=== PATIENT | male | born 1950 | race Caucasian/White ===

== ENCOUNTER 2016-09-14 09:52 | Day surgery (SDC) | payer MEDICARE ==
[~2016-09-14 09:52] MED LIST: Dextrose 5%-Lactated Ringers 1,000 ML IV SCH
[2016-09-14] MEDS ORDERED: Propofol 200 MG/20 ML SDV ONE (12:05)
[2016-09-14] MEDS ORDERED: fentaNYL 100 MCG/2 ML SDV ONE (12:05)
[2016-09-14 13:59] VITALS: BP 127/80
--- NOTE | 2016-09-21 08:46 | OR ---
DATE OF PROCEDURE: 09/14/2016 PREOPERATIVE DIAGNOSES: Highly symptomatic active Crohn's disease, rule out Crohn's colitis. POSTOPERATIVE DIAGNOSES: 1. No active Crohn's disease noted on colonoscopic examination. 2. Single small polyp in the descending colon (50 cm). OPERATIVE PROCEDURE: Flexible colonoscopy with polypectomy by Snare technique ([id number]). ANESTHESIA: IV sedation. INDICATION FOR PROCEDURE: This is a 66-year-old male with longstanding history of Crohn's disease. He is presently highly symptomatic in terms of multitude of bowel movements a day, and discomfort in the right lower quadrant. A small bowel follow-through x-ray was obtained last week, which showed a roughly a 10-inch segment of the distalmost small bowel being actively involved in Crohn's disease. To evaluate the extent of the colonic disease, the patient will undergo colonoscopy with biopsies and/or polypectomy at this time. Potential risks including bleeding and perforation were discussed and the patient wishes to proceed. DETAILS OF PROCEDURE: The patient was taken to the operating room and placed in a left lateral decubitus position. IV sedation was administered, after which the initial digital rectal exam was performed and was unremarkable. Colonoscope was then passed into the rectum with retroflexion revealing uncomplicated hemorrhoidal columns. The scope was then easily passed to the level of the previous colorectal anastomosis. The patient appeared to have had a very simple cecectomy previously with the ileocolic anastomosis being more or less at the beginning of the ascending colon. The patient was noted to have a small polyp within the descending colon at around 50 cm from the dentate line. Otherwise, no abnormalities were noted. The anastomosis to the small bowel and the immediate area did not appear to have any washout type colitis. The scope was then withdrawn and the above findings reconfirmed. The prep was fairly good. The small bowel was encircled at the base with a snare and excised. This came through as a fragmented specimen. Adequate hemostasis was confirmed. The scope was then withdrawn through the remainder of the colon and rectum with no additional abnormalities being noted. The plan at this point will be to proceed with exploratory laparotomy with resection of the distal small bowel portion of the colon on 09/29/2016. Elkin Arias MD /[id number]
== END 2016-09-14 14:15 | disposition home or self-care (01) ==
LOC: JP.SDS 09:52
PROVIDERS: ATTEND Surgery
DX: K63.5 Polyp of colon (principal); J44.9 Chronic obstructive pulmonary disease, unspecified; Z88.2 Allergy status to sulfonamides; Z88.8 Allergy status to other drugs, medicaments and biological substances; Z91.013 Allergy to seafood
CPT/HCPCS: 45385; 88305; J2704; J3010; J7042

== ENCOUNTER 2016-09-29 09:11 | Inpatient (IN) | payer MEDICARE ==
[~2016-09-29 09:11] MED LIST changes: -Dextrose 5%-Lactated Ringers 1,000 ML IV SCH; +Meropenem 500 MG SDV ONE
[2016-09-29] MEDS ORDERED: Naloxone 0.4 MG/ML SDV IVPUSH PRN (09:57)
[2016-09-29] MEDS: Morphine PF 150 MG/30 ML PCA Syringe IV PRN (10:09)
[2016-09-29] MEDS ORDERED: fentaNYL 25 MCG/HR Transdermal Patch TRDERM ONE (10:15)
[2016-09-29] MEDS ORDERED: Dextrose 5%-Lactated Ringers 1,000 ML IV SCH (10:15)
[2016-09-29] MEDS ORDERED: methylPREDNISolone Sodium Succinate 40 MG/1 ML SDV IVPUSH ONE (10:30)
[2016-09-29] MEDS: fentaNYL 25 MCG/HR Transdermal Patch TRDERM SCH (10:47)
[2016-09-29] MEDS ORDERED: Albuterol/Ipratropium 3.0-0.5 MG/3 ML Neb Soln NEB ONE (11:30)
[2016-09-29] MEDS ORDERED: fentaNYL 250 MCG/5 ML SDV ONE (13:11)
[2016-09-29] MEDS ORDERED: Midazolam 1 MG/ML 2 ML SDV ONE (13:11)
[2016-09-29] MEDS ORDERED: Ondansetron 4 MG/2 ML SDV ONE (13:15)
[2016-09-29] MEDS ORDERED: Dexamethasone 4 MG/ML SDV ONE (13:15)
[2016-09-29] MEDS ORDERED: Propofol 200 MG/20 ML SDV ONE (13:15)
[2016-09-29] MEDS ORDERED: Rocuronium 50 MG/5 ML Vial ONE ×2 (13:25→15:53)
[2016-09-29] MEDS ORDERED: Neostigmine Methylsulfate 1 MG/ML 5 ML Syringe ONE (13:25)
[2016-09-29] MEDS ORDERED: Ketamine 500 MG/5 ML MDV IV ONE (14:00)
[2016-09-29] MEDS: cefOXitin 2 GM in Sodium Chloride 0.9% 50 ML IV ONE (14:20)
[2016-09-29] MEDS ORDERED: Lactated Ringers 1,000 ML ONE (15:40)
[2016-09-29] MEDS: Nicotine 14 MG/24 Hr Patch TRDERM SCH (17:05)
[2016-09-29] MEDS ORDERED: Albuterol/Ipratropium 3.0-0.5 MG/3 ML Neb Soln INH PRN (17:51)
[2016-09-29] MEDS ORDERED: Diazepam 5 MG Tab PO PRN (17:52)
[2016-09-29] MEDS ORDERED: Phenazopyridine 95 MG Tab PO PRN (17:56)
[2016-09-29] MEDS: Acetaminophen 1,000 MG in Premix Bag 1 BAG IV SCH (18:55)
[2016-09-29] MEDS: MVI, Adult with Vitamin K 10 ML, Chromium/Copper/Mang/Selen/Zn 1 ML in Dextrose 5%-Lact... IV SCH ×3 (18:58)
[2016-09-29] MEDS: VERIFY FENT PATCH TOP SCH ×2 (19:28→21:14)
[2016-09-29] MEDS ORDERED: methylPREDNISolone Sodium Succinate 40 MG/1 ML SDV IV ONE (20:00)
[2016-09-29] MEDS: cefOXitin 2 GM in Sodium Chloride 0.9% 50 ML IV SCH (21:11)
[2016-09-29] MEDS: Pantoprazole 40 MG Vial IV SCH (21:12)
[2016-09-29] MEDS ORDERED: Losartan 50 MG Tab PO ONE (21:31)
[2016-09-29] MEDS ORDERED: Labetalol 20 MG/4 ML Syringe IVPUSH PRN (21:31)
[2016-09-29] MEDS: Albuterol/Ipratropium 3.0-0.5 MG/3 ML Neb Soln INH SCH (21:49)
[2016-09-30] MEDS: Acetaminophen 1,000 MG in Premix Bag 1 BAG IV SCH ×4 (00:28→18:28)
[2016-09-30] MEDS: Dextrose 5%-Lactated Ringers 1,000 ML IV SCH ×3 (02:45→21:59)
[2016-09-30] MEDS: cefOXitin 2 GM in Sodium Chloride 0.9% 50 ML IV SCH ×3 (02:45→14:12)
[2016-09-30] MEDS ORDERED: methylPREDNISolone Sodium Succinate 40 MG/1 ML SDV IV ONE (06:00)
[2016-09-30] MEDS: Levothyroxine 100 MCG Tab PO SCH (08:09)
[2016-09-30] MEDS: Nicotine 14 MG/24 Hr Patch TRDERM SCH (08:09)
[2016-09-30] MEDS ORDERED: LEVOTHYROXINE SODIUM 100 MCG PO SCH (09:00)
[2016-09-30] MEDS ORDERED: Losartan 50 MG Tab PO SCH ×2 (09:00)
[2016-09-30] MEDS ORDERED: [UNRECOGNIZED DRUG - REMARK] TOP SCH (09:00)
[2016-09-30] MEDS: VERIFY FENT PATCH TOP SCH ×2 (09:37→20:08)
[2016-09-30] MEDS ORDERED: Acetaminophen/Caffeine 500-65 MG Tab PO SCH (10:00)
--- NOTE | 2016-09-30 11:54 | PCM.CONS ---
H&P History of Present Illness - General Date of Service: 09/30/16 Admit Problem/Dx: Admission Diagnosis/Problem Admission Diagnosis/Problem Exploratory laparotomy Source of Information: Patient, Family, Provider, RN notes reviewed History Limitations: Reports: No limitations - History of Present Illness Initial Comments - Free Text/Narative: This patient is a 66-year-old gentleman been asked to see by Dr. Arias concerning a suppressed TSH. He was admitted and underwent partial small bowel resection yesterday by Dr. Arias because of active Crohn's disease causing significant symptoms. He is been stable and done well during the initial postoperative period. Plan is for delayed primary closure tomorrow. He does have a known history of hypothyroidism and is on thyroid replacement medication. TSH obtained prior to surgery was suppressed suggesting possible iatrogenic hyperthyroidism. TSH was repeated this morning and remains suppressed, free T4 level was within normal range, and free T3 level was mildly low. He denies significant symptoms of hyper or hypothyroidism. Right Abdomen Pain Score (Numeric/FACES): 5 Abdomen Pain Score (Numeric/FACES): 8 - Related Data Allergies/Adverse Reactions: Allergies Allergy/AdvReac Type Severity Reaction Status Date / Time Sulfa (Sulfonamide Allergy Unknown unknown Verified 09/14/16 10:11 Antibiotics) adalimumab [From Humira] Allergy Dizziness Verified 09/29/16 10:11 hydromorphone [From Dilaudid] Allergy Itching Verified 09/29/16 10:11 infliximab [From Remicade] Allergy Hives Verified 09/29/16 10:11 shellfish derived Allergy Vomiting Verified 09/14/16 10:11 Home Medications: Home Meds Cholecalciferol (Vitamin D3) [Vitamin D] 2,000 unit PO DAILY 07/24/13 [History] Diazepam [Valium] 15 mg PO BEDTIME 07/24/13 [History] Methscopolamine [place] [Pamine] 2.5 mg PO ACBREAKFAST 07/24/13 [History] Minocycline HCl 50 mg PO DAILY 07/24/13 [History] Phenazopyridine [Pyridium] 200 mg PO TID PRN 07/24/13 [History] Levothyroxine Sodium [Tirosint] 100 mcg PO DAILY 02/18/14 [History] Acetaminophen/Caffeine [Excedrin Tension Headache] 1 tab PO Q6HR 10/01/15 [ History] Doxylamine Succinate [Unisom] 50 mg PO BEDTIME 10/01/15 [History] Pantoprazole [Protonix] 40 mg PO ACBREAKFAST 10/01/15 [History] hydrOXYzine HCl [Atarax] 50 mg PO BEDTIME 10/01/15 [History] Albuterol/Ipratropium [Combivent Respimat] 1 puff IH Q4H PRN 09/10/16 [History] Calcium Citrate 200 mg PO BID 09/10/16 [History] Cyanocobalamin (Vitamin B-12) [Vitamin B-12] 1,000 mcg IM Q30D 09/10/16 [History ] Hydrocodone/Acetaminophen [Hydrocodon-Acetaminophn 10-300] 1.5 tab PO BID [History] Potassium Chloride 40 meq PO TID 09/10/16 [History] predniSONE [Deltasone] 5 mg PO DAILY 09/10/16 [History] Losartan [Cozaar] 12.5 mg PO DAILY 09/29/16 [History] Past Medical History HEENT History: Reports: Allergic rhinitis, Cataract, Impaired vision, Sinusitis Cardiovascular History: Reports: Hypertension, Other (see below) Other Cardiovascular History: Atypical Chest Pain Respiratory History: Reports: COPD, Pneumothorax, Other (see below) Other Respiratory History: pleurisy Gastrointestinal History: Reports: Bowel obstruction, Diverticulosis, GERD, Other (see below) Other Gastrointestinal History: Chrons Genitourinary History: Reports: Renal calculus, Other (see below) Other Genitourinary History: 12 kidney stones per year. Musculoskeletal History: Reports: Back pain, chronic, Osteoarthritis Neurological History: Reports: Headaches, chronic Psychiatric History: Reports: Anxiety, Depression, Panic attack Endocrine/Metabolic History: Reports: Hypothyroidism, Osteopenia Hematologic History: Reports: B12 deficiency, Iron deficiency Immunologic History: Reports: None Dermatologic History: Reports: Eczema, Psoriasis - Infectious Disease History Infectious Disease History: Reports: Chicken pox, Measles, Mumps, Pertussis ( whooping cough) - Past Surgical History Head Surgeries/Procedures: Reports: None HEENT Surgical History: Reports: Cataract surgery, Eye surgery, Oral surgery, Other (see below) Other HEENT Surgeries/Procedures: dental implants Cardiovascular Surgical History: Reports: None Respiratory Surgical History: Reports: None GI Surgical History: Reports: Appendectomy, Colon, Colonoscopy, Hernia repair/ other, Polypectomy Male Surgical History: Reports: Kidney stone extraction, Lithotripsy ([facility]) Endocrine Surgical History: Reports: None Neurological Surgical History: Reports: Scoliosis Musculoskeletal Surgical History: Reports: None Dermatological Surgical History: Reports: None Social & Family History - Family History Family Medical History: Noncontributory - Tobacco Use Smoking Status *Q: Current Every Day Smoker Years of Tobacco use: 50 Packs/Tins Daily: 0.5 Used Tobacco, but Quit: No Month Tobacco Last Used: feb Second Hand Smoke Exposure: No - Caffeine Use Caffeine Use: Reports: Coffee Other Caffeine Use: 2 cups - Alcohol Use Days Per Week of Alcohol Use: 0 - Recreational Drug Use Recreational Drug Use: No H&P Review of Systems - Review of Systems: Review Of Systems: See Below General: Reports: weakness. Denies: fever, chills, diaphoresis Pulmonary: Reports: No Symptoms Cardiovascular: Reports: no symptoms Skin: Reports: no symptoms Exam - Exam Exam: See Below - Vital Signs Vital Signs: Last Vital Signs Temp 98.1 F 09/30/16 11:00 Pulse 80 09/30/16 11:00 Resp 16 09/30/16 11:00 BP 101/65 09/30/16 11:00 Pulse Ox 96 09/30/16 11:00 Weight: 134 lb 6 oz - Exam Quality Assessment: DVT prophylaxis General: sedated Neck: supple, trachea midline, +2 carotid pulse wo bruit. No: lymphadenopathy, thyromegaly Lungs: Clear to auscultation, Normal respiratory effort Cardiovascular: regular rate, regular rhythm, normal S1, normal S2 Abdomen: soft, tenderness, hypoactive bowel sounds. No: organomegaly, peritoneal signs, distention, guarding, rigidity, rebound Back Exam: normal inspection, full range of motion, NT - Patient Data Lab Results last 24 hrs: Laboratory Results - last 24 hr 09/30/16 09/30/16 Range/Units 05:30 05:30 Free T4 0.98 (0.76-1.46) ng/dL Free T3 1.43 L (2.18-3.98) pg/dL TSH, Ultra Sensitive 0.030 L (0.358-3.740) uIU/mL Consult PN Assessment/Plan Procedures: Procedures ASSAY OF LIPASE (11/21/13) ASSAY OF TROPONIN QUANT (10/01/15) CHEST X-RAY 1 VIEW FRONTAL (10/01/15) CLOSTRIDIUM AG IA (11/22/13) COLONOSCOPY W/LESION REMOVAL (09/14/16) COMPLETE CBC W/AUTO DIFF WBC (10/01/15) COMPREHEN METABOLIC PANEL (10/01/15) CT ABD & PELV W/CONTRAST (11/21/13) CT ANGIOGRAPHY CHEST (03/12/14) CT MAXILLOFACIAL W/O DYE (08/31/16) ELECTROCARDIOGRAM REPORT (10/01/15) ELECTROCARDIOGRAM TRACING (10/01/15) EMERGENCY DEPT VISIT (10/01/15) EMERGENCY DEPT VISIT (10/01/15) EMERGENCY DEPT VISIT (02/18/14) EMERGENCY DEPT VISIT (11/21/13) HYDRATE IV INFUSION ADD-ON (03/12/14) ROUTINE VENIPUNCTURE (10/01/15) THER/PROPH/DIAG INJ IV PUSH (10/01/15) TISSUE EXAM BY PATHOLOGIST (09/14/16) TX/PRO/DX INJ NEW DRUG ADDON (10/01/15) URINALYSIS AUTO W/SCOPE (10/01/15) X-RAY UPPER GI&SMALL INTEST (09/11/16) Problem List Initiated/Reviewed/Updated: Yes Plan: ASSESSMENT AND RECOMMENDATIONS STATUS POST PARTIAL SMALL BOWEL RESECTION-patient has had ongoing difficulty with active Crohn's in symptoms and has failed medical management. Surgery performed yesterday by Dr. Arias. -Postop care as per Dr. Arias SUPPRESSED TSH-history of hypothyroidism on thyroid replacement medication. Laboratory tests repeated this morning TSH remains suppressed with a normal T4 and mildly low T3. Does not appear that he has active hyperthyroidism based on these results and certainly has had no symptoms consistent with iatrogenic hyperthyroidism. Likely that the TSH suppression secondary to recent inflammation from the active Crohn's disease -Continue current dose of thyroid replacement medication -Recheck TSH, free T3, and free T4 in 4-6 weeks Requesting Provider: SORIANO Date Consult Requested: 09/30/16 Reason for Consult: Suppressed TSH Patient History Reviewed: Yes
[2016-09-30] MEDS: Albuterol/Ipratropium 3.0-0.5 MG/3 ML Neb Soln INH SCH ×3 (14:33→20:07)
[2016-09-30] MEDS: cefOXitin 2 GM in Sodium Chloride 0.9% 50 ML IV ONE (15:28)
[2016-09-30] MEDS: MVI, Adult with Vitamin K 10 ML, Chromium/Copper/Mang/Selen/Zn 1 ML in Dextrose 5%-Lact... IV SCH ×3 (16:06)
--- NOTE | 2016-09-30 17:25 | PN ---
DATE OF SERVICE: 09/30/2016 SUBJECTIVE: Tien is postop day one. He has been n.p.o. His vital signs have been stable. Temp max of 98.1. His on MALIK put out 110 mL of a light red drainage output, Miller catheter was 715. He had some difficulty with pain control, was started on IV Tylenol and this did not help with the pain quite a bit. REVIEW OF SYSTEMS: Remainder of review of systems negative for any pertinent positives and negatives. OBJECTIVE: GENERAL: Tien Sol is a 66-year-old male. He reports he is comfortable with right now pain is a 4/10. VITAL SIGNS: Temperature is 99.3, pulse rate is 78, respirations are 16, blood pressure 99/62, and pulse ox is 96%. HEENT: Negative. NECK: Supple. HEART: Regular rate and rhythm. LUNGS: Clear. ABDOMEN: Dressings dry and intact. Abdominal binder is on. EXTREMITIES: Without peripheral edema. SCDs are on. ASSESSMENT: Exploratory laparotomy with distal small four bowel resection. PLAN: Discontinue Miller catheter; n.p.o. with ice chips and medications only. Schedule and have consent signed for delayed primary closure on 10/01/2016, IV sedation, Elkin Arias MD. Decrease IV to D5 LR 100 mL per hour. MEDICATIONS: 1. Home medications were started include Excedrin extra-strength one to two tabs daily p.r.n. severe headache, Valium 15 mg p.o. at bedtime, Lorazepam 0.5 mg IV push every 4 hours p.r.n., good pulmonary toilet encouraged. 2. We will evaluate p.r.n. or in a.m. Linda Leo PA-C /[id number]
[2016-09-30] MEDS: LORazepam 2 MG/ML MDV IVPUSH PRN (19:05)
[2016-09-30] MEDS: hydrOXYzine HCl 25 MG Tab PO SCH (20:06)
[2016-09-30] MEDS: Pantoprazole 40 MG Vial IV SCH (20:06)
[2016-09-30] MEDS: Losartan 50 MG Tab PO SCH (20:07)
[2016-09-30] MEDS: Diazepam 5 MG Tab PO SCH (20:16)
[2016-09-30] MEDS ORDERED: Diazepam 5 MG Tab PO SCH (21:00)
[2016-09-30] MEDS ORDERED: DOXYLAMINE SUCCINATE 50 MG PO SCH (21:00)
[2016-10-01] MEDS: LORazepam 2 MG/ML MDV IVPUSH PRN (03:02)
[2016-10-01] MEDS ORDERED: Bupivacaine 0.5% 50 ML MDV ONE (06:45)
[2016-10-01] MEDS ORDERED: Lidocaine 1% with EPINEPHrine 1:100,000 50 ML MDV ONE (06:45)
[2016-10-01] MEDS ORDERED: Meropenem 500 MG SDV ONE (06:45)
[2016-10-01] MEDS ORDERED: fentaNYL 100 MCG/2 ML SDV ONE (06:45)
[2016-10-01] MEDS ORDERED: Propofol 200 MG/20 ML SDV ONE (06:45)
[2016-10-01] MEDS ORDERED: Lactated Ringers 1,000 ML ONE (07:22)
[2016-10-01] MEDS ORDERED: Linezolid 200 MG/100 ML Bag IRR ONE (07:30)
--- NOTE | 2016-10-01 07:43 | PN ---
DATE OF SERVICE: 10/01/2016 SUBJECTIVE: Tien is n.p.o., going down for a delayed primary closure today with IV sedation. He did sleep better last night, but he states he woke up very easily. He does doze off in between. The pain is better controlled. He has no other concerns or questions. His Miller was taken out yesterday. He is voiding. MALIK drain put out 40 mL of a light pink serosanguineous drainage. OBJECTIVE: GENERAL: Tien Sol is a 66-year-old male. He dozes off easily when conversing with him. VITAL SIGNS: TPR 98.8, 80, 18, blood pressure 140/76. HEENT: Negative. NECK: Supple. HEART: Regular rate and rhythm. LUNGS: Clear. ABDOMEN: Dressing dry and intact. MALIK drain as above. EXTREMITIES: SCDs are on. ASSESSMENT: Exploratory laparotomy with distal small bowel resection. PLAN: Orders to be written following delayed primary closure. Linda Leo PA-C /[id number]
[2016-10-01] MEDS: Albuterol/Ipratropium 3.0-0.5 MG/3 ML Neb Soln INH SCH ×4 (10:00→22:04)
[2016-10-01] MEDS: Acetaminophen/Aspirin/Caffeine 250-250-65 MG Tab PO PRN ×3 (10:19→20:14)
[2016-10-01] MEDS: Levothyroxine 100 MCG Tab PO SCH (10:20)
[2016-10-01] MEDS: VERIFY FENT PATCH TOP SCH ×2 (10:21→22:08)
[2016-10-01] MEDS: Nicotine 14 MG/24 Hr Patch TRDERM SCH (10:21)
[2016-10-01] MEDS: Metoclopramide 10 MG/2 ML SDV IV SCH ×3 (10:29→22:05)
[2016-10-01] MEDS: methylPREDNISolone Sodium Succinate 40 MG/1 ML SDV IV SCH (10:34)
[2016-10-01] MEDS: Dextrose 5%-Lactated Ringers 1,000 ML IV SCH (14:18)
[2016-10-01] MEDS ORDERED: Non-Formulary Medication 1 Each PO PRN (14:31)
[2016-10-01] MEDS ORDERED: DOXYLAMINE PO PRN (14:39)
[2016-10-01] MEDS: MVI, Adult with Vitamin K 10 ML, Chromium/Copper/Mang/Selen/Zn 1 ML in Dextrose 5%-Lact... IV SCH ×3 (17:29)
[2016-10-01] MEDS: Pantoprazole 40 MG Vial IV SCH (19:43)
[2016-10-01] MEDS: Losartan 50 MG Tab PO SCH (20:10)
[2016-10-01] MEDS: Diazepam 5 MG Tab PO SCH (22:04)
[2016-10-01] MEDS: hydrOXYzine HCl 25 MG Tab PO SCH (22:17)
[2016-10-02] MEDS: diphenhydrAMINE 25 MG Cap PO PRN (01:32)
[2016-10-02] MEDS: Dextrose 5%-Lactated Ringers 1,000 ML IV SCH (04:50)
[2016-10-02] MEDS: Metoclopramide 10 MG/2 ML SDV IV SCH ×4 (04:52→22:34)
[2016-10-02] MEDS: Albuterol/Ipratropium 3.0-0.5 MG/3 ML Neb Soln INH SCH ×4 (07:11→20:46)
[2016-10-02] MEDS: Levothyroxine 100 MCG Tab PO SCH (07:32)
--- NOTE | 2016-10-02 09:03 | PN ---
DATE OF SERVICE: 10/02/2016 SUBJECTIVE: Tien did sleep better last night. His vital signs have been stable. He has been up ambulating. Pain controlled. He has not had any bowel movements yet and is not passing gas. REVIEW OF SYSTEMS: Remainder of review of systems negative for any pertinent positives and negatives. OBJECTIVE: GENERAL: Tien Sol is a 66-year-old male. He is alert and orientated. VITAL SIGNS: TPR is 97.7, 75, 16. Blood pressure 129/78. HEENT: Negative. NECK: Supple. HEART: Regular rate and rhythm. LUNGS: Clear. ABDOMEN: Dressings dry and intact. Abdominal binder is on. EXTREMITIES: Without peripheral edema. ASSESSMENT: 1. Exploratory laparotomy with distal small-bowel resection on 09/29/2016. 2. Delayed primary closure for open abdominal incision on 10/01/2016. PLAN: 1. Dressing off, may shower. Continue same orders. 2. Ice chips, with sips of water. 3. We will evaluate p.r.n. or in a.m. Linda Leo PA-C /[id number]
[2016-10-02] MEDS: Nicotine 14 MG/24 Hr Patch TRDERM SCH (09:04)
[2016-10-02] MEDS: methylPREDNISolone Sodium Succinate 40 MG/1 ML SDV IV SCH (09:05)
[2016-10-02] MEDS: VERIFY FENT PATCH TOP SCH ×2 (09:25→21:03)
[2016-10-02] MEDS: fentaNYL 25 MCG/HR Transdermal Patch TRDERM SCH (10:11)
[2016-10-02] MEDS: Morphine PF 150 MG/30 ML PCA Syringe IV PRN (10:32)
[2016-10-02] MEDS: MVI, Adult with Vitamin K 10 ML, Chromium/Copper/Mang/Selen/Zn 1 ML in Dextrose 5%-Lact... IV SCH ×3 (15:41)
[2016-10-02] MEDS: Acetaminophen/Aspirin/Caffeine 250-250-65 MG Tab PO PRN (17:32)
[2016-10-02] MEDS: hydrOXYzine HCl 25 MG Tab PO SCH (20:46)
[2016-10-02] MEDS: Pantoprazole 40 MG Vial IV SCH (20:46)
[2016-10-02] MEDS: Diazepam 5 MG Tab PO SCH (20:47)
[2016-10-02] MEDS: Losartan 50 MG Tab PO SCH (20:48)
[2016-10-03] MEDS: Dextrose 5%-Lactated Ringers 1,000 ML IV SCH ×2 (01:43→11:02)
[2016-10-03] MEDS: Metoclopramide 10 MG/2 ML SDV IV SCH ×4 (04:25→22:48)
[2016-10-03] MEDS: Albuterol/Ipratropium 3.0-0.5 MG/3 ML Neb Soln INH SCH ×4 (07:42→20:04)
[2016-10-03] MEDS: methylPREDNISolone Sodium Succinate 40 MG/1 ML SDV IV SCH (08:33)
[2016-10-03] MEDS: Levothyroxine 50 MCG Tab PO SCH (08:33)
[2016-10-03] MEDS: Nicotine 14 MG/24 Hr Patch TRDERM SCH (08:33)
[2016-10-03] MEDS: VERIFY FENT PATCH TOP SCH (08:40)
[2016-10-03] MEDS ORDERED: Bisacodyl 10 MG Supp RECTAL PRN (09:08)
[2016-10-03] MEDS ORDERED: Bisacodyl 10 MG Supp RECTAL ONE (09:30)
[2016-10-03] MEDS: METHSCOPOLAMINE BROMIDE PO SCH ×2 (12:45→17:19)
[2016-10-03] MEDS: MVI, Adult with Vitamin K 10 ML, Chromium/Copper/Mang/Selen/Zn 1 ML in Dextrose 5%-Lact... IV SCH ×3 (17:19)
[2016-10-03] MEDS: Acetaminophen/Aspirin/Caffeine 250-250-65 MG Tab PO PRN (17:29)
[2016-10-03] MEDS ORDERED: Bisacodyl 5 MG Tab PO ONE (19:26)
[2016-10-03] MEDS: hydrOXYzine HCl 25 MG Tab PO SCH (20:04)
[2016-10-03] MEDS: Pantoprazole 40 MG Vial IV SCH (20:04)
[2016-10-03] MEDS: Losartan 50 MG Tab PO SCH (20:05)
[2016-10-03] MEDS: Diazepam 5 MG Tab PO SCH (20:11)
[2016-10-04] MEDS: Metoclopramide 10 MG/2 ML SDV IV SCH ×4 (03:47→22:20)
[2016-10-04] MEDS: Albuterol/Ipratropium 3.0-0.5 MG/3 ML Neb Soln INH SCH ×4 (07:37→20:32)
[2016-10-04] MEDS: Dextrose 5%-Lactated Ringers 1,000 ML IV SCH (07:53)
[2016-10-04] MEDS: METHSCOPOLAMINE BROMIDE PO SCH ×3 (07:56→17:19)
[2016-10-04] MEDS: Levothyroxine 50 MCG Tab PO SCH (07:57)
[2016-10-04] MEDS: Nicotine 14 MG/24 Hr Patch TRDERM SCH (10:10)
[2016-10-04] MEDS: methylPREDNISolone Sodium Succinate 40 MG/1 ML SDV IV SCH (10:11)
[2016-10-04] MEDS: predniSONE 5 MG Tab PO SCH (13:06)
[2016-10-04] MEDS: Acetaminophen/HYDROcodone 325-10 MG Tab PO PRN ×2 (15:17→20:32)
[2016-10-04] MEDS: MVI, Adult with Vitamin K 10 ML, Chromium/Copper/Mang/Selen/Zn 1 ML in Dextrose 5%-Lact... IV SCH ×3 (17:17)
[2016-10-04] MEDS: Pantoprazole 40 MG Vial IV SCH (20:30)
[2016-10-04] MEDS: hydrOXYzine HCl 25 MG Tab PO SCH (20:31)
[2016-10-04] MEDS: Losartan 50 MG Tab PO SCH (20:31)
[2016-10-04] MEDS: diphenhydrAMINE 25 MG Cap PO PRN (20:39)
[2016-10-04] MEDS: Diazepam 5 MG Tab PO SCH (20:39)
[2016-10-05] MEDS: Dextrose 5%-Lactated Ringers 1,000 ML IV SCH (00:10)
[2016-10-05] MEDS: Metoclopramide 10 MG/2 ML SDV IV SCH (04:51)
[2016-10-05] MEDS: Acetaminophen/HYDROcodone 325-10 MG Tab PO PRN (04:56)
[2016-10-05] MEDS: Albuterol/Ipratropium 3.0-0.5 MG/3 ML Neb Soln INH SCH (07:18)
[2016-10-05 07:34] VITALS: BP 140/83
[2016-10-05] MEDS: METHSCOPOLAMINE BROMIDE PO SCH (08:45)
[2016-10-05] MEDS: Levothyroxine 50 MCG Tab PO SCH (08:45)
[2016-10-05] MEDS: Nicotine 14 MG/24 Hr Patch TRDERM SCH (08:47)
[2016-10-05] MEDS: predniSONE 5 MG Tab PO SCH (08:47)
--- NOTE | 2016-10-05 13:53 | PN ---
DATE OF SERVICE: 10/04/2016 The patient has been afebrile, stable vital signs. No major problems noted overnight. Did move his bowels, and passing quite a bit in the way of flatus, tolerated full liquid diet. Plan will be to move up to regular diet. He does have some food intolerances but the regular diet will allow him to choose off the tray things that he should be able to take in as well as to avoid. I'll switch over to oral pain medication, oral prednisone. He may be ready for discharge in another day or two. MALIK drains putting out quite a bit in the way of clear serous fluid and we will remove that drain today as well. Elkin Arias MD /[id number]
[2016-10-05] MEDS ORDERED: Pantoprazole 40 MG Tab.CR PO SCH (21:00)
--- NOTE | 2016-10-06 01:53 | DISCH ---
ADMISSION DIAGNOSES: Crohn's disease, atypical chest pain, hypertension, chronic obstructive pulmonary disease, history of smoking, diverticulosis, gastroesophageal reflux disease, renal calculus, chronic back pain, osteoarthritis, chronic headaches, anxiety, depression, panic attacks, hypothyroidism, osteopenia B12 deficiency, iron deficiency, eczema, and psoriasis. DISCHARGE DIAGNOSES: 1. Exploratory laparotomy with small bowel resection, right colectomy, separate small- bowel strictureplasty and placement of interceed mesh for Crohn's disease, distal small bowel, refractory to medical management on 09/29/2016. 2. Delayed primary closure for open incision on 10/01/2016. HISTORY: Tien Sol is a 66-year-old male with persistent abdominal pain associated with Crohn's disease. After preoperative evaluation and discussion of possible risks and possible complications, he wished to proceed with surgical procedure. HOSPITAL COURSE: Tien had his surgery on 09/29/2016. He had no operative complications and he had a delayed primary closure on 10/01/2016. His pain was treated appropriately. His activity was some adequate. His vital signs remained stable. He started passing flatus and was able to start on a diet. He was advanced from a clear liquid diet to a regular diet, changed from the DOCENT COORDINATOR to oral pain medication and he was able to be discharged without any complications on 10/05/2016. PHYSICAL EXAMINATION: GENERAL: Tien Sol is a 66-year-old male. VITAL SIGNS: Height is 5 feet 7 inches, weight is 134 pounds. TPR is 97.8, 71, 18, blood pressure 140/83. HEENT: Negative. NECK: Supple. HEART: Regular rate and rhythm. LUNGS: Clear. ABDOMEN: Incision looks good. [place] in place and his abdominal binder has been on. EXTREMITIES: Without peripheral edema. DISPOSITION: Discharged to home. CONDITION: Stable and improving. FOLLOWUP: Followup appointment with Elkin Arias MD, on 10/14/2016 at 8:30 a.m. Check free T4-T3 and TSH before appointment. HOME MEDICATION: 1. [place] 10/325 mg 1 to 2 every 4 hours p.r.n. pain #50. 2. Reglan 10 mg q.6 hours p.r.n. nausea #30. 3. He is to resume his home medication of Excedrin tension headache one tablet every 6 hours p.r.n. headache. 4. Combivent 1 inhaler, one puff inhaled every 4 hours p.r.n. shortness of breath. 5. Calcium citrate 200 mg oral twice daily. 6. Vitamin D3 2000 international units oral daily. 7. Vitamin B12 1000 mcg IM every 30 days. 8. Diazepam (Valium) 15 mg oral at bedtime. 9. Unisom doxylamine succinate 50 mg oral at bedtime. 10.Levothyroxine (Tirosint) 100 mcg oral daily. 11.Cozaar losartan 12.5 mg oral daily. 12.Methscopolamine Everetts 2.5 mg oral 3 times a day before meals. 13.Minocycline 50 mg oral daily. 14.Protonix 40 mg before breakfast. 15.Pyridium 200 mg oral 3 times a day as needed for kidney stones. 16.Potassium chloride 40 mEq oral 3 times a day. 17.Hydroxyzine 50 mg oral at bedtime. 18.Prednisone 5 mg oral daily. DIET: After discharge drink 8 to 10 glasses of water a day. GI soft and low residue and low-fiber diet. ACTIVITY: No lifting greater than 10 pounds for 6 weeks. Driving: Do not drive on pain medication. Shower bathing, may shower. Notify provider if any fever, increased pain, swelling, redness, nausea, vomiting, wound incision care keep site clean and dry. Wear abdominal binder for 2 weeks and then as tolerated. SPECIAL INSTRUCTION: Use incentive spirometer 10 times every hour while awake for 2 weeks.
--- NOTE | 2016-10-06 07:38 | PN ---
DATE OF SERVICE: 10/03/2016 The patient has been afebrile with stable vital signs and it feels like there's a sense that he might need to move his bowels, but no flatus or bowel movement, no nausea. Given Dulcolax suppositories, to support, and repeat that p.r.n. otherwise activity will continue to work with pulmonary toilet. We will have him get in the shower today. Elkin Arias MD /[id number]
--- NOTE | 2016-10-08 21:13 | OR ---
DATE OF PROCEDURE: 10/01/2016 PREOPERATIVE DIAGNOSIS: Open abdominal incision. POSTOPERATIVE DIAGNOSIS: Open abdominal incision. OPERATIVE PROCEDURE: Delayed primary closure of open abdominal incision. ANESTHESIA: Local plus IV sedation. INDICATION FOR PROCEDURE: This is a 66-year-old status post a recent small and large bowel resection. The patient has Crohn disease and has steroids, and given the minor contamination as well as concurrent steroid use, the patient was felt to be high risk for a wound infection if primary closure was undertaken. Given this, the wound was packed open for a planned delayed primary closure. Potential risks including bleeding and infection were reviewed, and the patient wishes to proceed. DETAILS OF PROCEDURE: The patient was taken to the operating room and placed in a supine position. After IV sedation was administered, the operative dressing was taken down lower midline incision. The incision was irrigated with meropenem-containing saline solution and then anesthetized with 1% lidocaine mixed with Marcaine. The incision was then closed with 2 layers of 3-0 and 4-0 Vicryl stitch deep and hilton for the skin. Dressing was applied. The patient was taken to the recovery room in satisfactory condition. Elkin Arias MD /[id number]
--- NOTE | 2016-10-09 08:48 | OR ---
DATE OF PROCEDURE: 09/29/2016 PREOPERATIVE DIAGNOSIS: Persistent Crohn's disease associated with symptomatic narrowing in distal small bowel, refractory to medical management. POSTOPERATIVE DIAGNOSES: 1. Persistent Crohn's disease associated with symptomatic narrowing in distal small bowel, refractory to medical management. 2. Separate small-bowel stricture, mid ileum. OPERATIVE PROCEDURE: Exploratory laparotomy with. 1. Small bowel resection (15052). 2. Right colectomy (807658). 3. Separate small bowel strictureplasty (54094). 4. Placement of Interceed mesh to displace pelvic and abdominal wall from small bowel to limit recurrent adhesion formation (76911). ANESTHESIA: General. INDICATION FOR PROCEDURE: This is a 66-year-old male with longstanding Crohn's disease. He presently has been afflicted for now years with area of narrowing in the distal small bowel. This was recently identified with a small bowel follow through, apparently involves roughly 15 cm segment just proximal to the previous ileocolic anastomosis on the right side. The plan is to do exploratory laparotomy with resection of those structures. We will most likely proceed with more of a formal right colectomy in this case to get the colonic site of the anastomosis into a relatively nonscarred and well vascularized portion as well as resect the distal small bowel involving the area of stricturing. We will examine the remainder of the small large bowel for additional pathology with the procedures to be done based on operative findings. Potential risks of the procedure including bleeding, infection, leaks from various GI tract closures, possibility of persistent or recurrent symptoms over time as well as possibility of cardiopulmonary, septic, or hemorrhagic complications leading to were discussed, and the patient wishes to proceed. PROCEDURE IN DETAIL: The patient was taken to the operating room. After general endotracheal anesthesia was induced, a Miller catheter was inserted along with a nasogastric tube, and the abdomen prepped and draped. The previous lower midline incision was then reused and carried down through the skin and subcutaneous tissue. This extended down into the lower abdomen below where there appeared previous incision. This allowed entrance into the abdomen into a cleaned area. With the patient's previous mesh repair in the supraumbilical region, the dissection continued up to the fascia level, but it was felt not to be necessarily going higher than for what we needed for exposure. Thus, the previous mesh was not incised or exposed limiting the chances of this becoming infected. At this point, there was a fair bit in the way of adhesions which were taken down. Eventually, the area of the distal small bowel and ileocolic anastomosis was identified. The distal small bowel was then divided at a point where it became relatively normal and a gross appearance, this being around 18 inches proximal to the anastomosis. The patient has had very limited previous small-bowel resections, so at this point, there was still almost normal length of small bowel remaining after the above resection had been completed. The small bowel was divided with a ANA tafoya load and at that point, the transverse colon more or less on the hepatic flexure site divided with a ANA purple load and the dissection then came up to the area of the previous anastomosis. There were tense inflammatory changes in that area. Tedious dissection was undertaken with the pressure at that area being freed up with care taken to avoid injury to the right ureter and duodenum. After these were freed up and those structures were confirmed to be intact and the mesenteric along the distal small bowel, the remaining right colon divided with a ANA vascular mesenteric loads and specimen delivered from the field. GI tract continuity was then accomplished with a [id number] ileocolic anastomosis with 2 internal firings of the ANA tafoya loads and the common opening closed transversely with the purple load. The anastomosis and mesenteric defect were then approximated with some 3-0 Vicryl stitch along with fibrin sealant. In the mid ileum, the patient had one additional area of stricturing present. This was felt best treated by means of stricturoplasty and enterotomy. The point of stricture was then made in the epigastric port and armed with the ANA stapler passed into the bowel loops as they laid up against each other. This was then fired and the common opening closed transversely with the purple load and the fresh load firings being with a tafoya load. The angles of anastomosis were reinforced with 3-0 Vicryl stitch. In this case, there was no mesenteric defect. A Jong-Baca drain was then placed through a stab wound in the right mid abdomen, taken across the area of the right pericolic gutter and from there into the pelvis and it was irrigated with an antibiotic-containing saline solution. The omentum at this point was all adherent up to the previous mesh and given this, an Interceed mesh was placed along the pelvic sidewall, behind the urinary bladder and then up against the abdominal wall to prevent recurrent adhesion formation between the small bowel and below those structures. The midline fascia was then approximated with #2 Vicryl stitch and the skin and subcutaneous tissues were felt to be at high risk for wound infection if primary closure were undertaken. Given this, the wound was packed open with iodoform gauze and for planned delayed primary closure in 48 hours. The patient was taken to the recovery room in satisfactory condition. There were no evident complications. Elkin Arias MD /[id number]
== END 2016-10-05 10:35 | disposition home or self-care (01) | DRG 330 ==
LOC: JP.SDSSCHI 09:11 → JP.SDS 09:11 → EDSTATUS 11:45 → JP.2SS 17:30
PROVIDERS: ADMIT Surgery; ATTEND Surgery
PROC: 0DTF0ZZ Resection of Right Large Intestine, Open Approach (ICD-10-PCS; principal; 2016-09-29)
PROC: 3E0M05Z Introduction of Adhesion Barrier into Peritoneal Cavity, Open Approach (ICD-10-PCS; principal; 2016-09-29)
PROC: 0DB80ZZ Excision of Small Intestine, Open Approach (ICD-10-PCS; principal; 2016-09-29)
PROC: 0WQF0ZZ Repair Abdominal Wall, Open Approach (ICD-10-PCS; 2016-10-01)
DX: K50.912 Crohn's disease, unspecified, with intestinal obstruction (principal); K50.919 Crohn's disease, unspecified, with unspecified complications; Z48.1 Encounter for planned postprocedural wound closure; I10 Essential (primary) hypertension; Z90.49 Acquired absence of other specified parts of digestive tract; F41.9 Anxiety disorder, unspecified; E53.8 Deficiency of other specified B group vitamins; J44.9 Chronic obstructive pulmonary disease, unspecified; K21.9 Gastro-esophageal reflux disease without esophagitis; E03.9 Hypothyroidism, unspecified; E55.9 Vitamin D deficiency, unspecified; M81.0 Age-related osteoporosis without current pathological fracture; Z87.442 Personal history of urinary calculi; M54.9 Dorsalgia, unspecified; G89.29 Other chronic pain; F17.210 Nicotine dependence, cigarettes, uncomplicated; Z79.82 Long term (current) use of aspirin; Z79.52 Long term (current) use of systemic steroids; Z91.013 Allergy to seafood; Z88.2 Allergy status to sulfonamides; Z88.8 Allergy status to other drugs, medicaments and biological substances
CPT/HCPCS: 36415; 84439; 84443; 84481; 88307; 94640; 94640-76; 94762; A9270-GY; C9113; J0131; J0694; J1100; J2020; J2060; J2185; J2250; J2270; J2405; J2704; J2765; J2920; J3010; J7042; J7050; J7120; J7620

== ENCOUNTER 2017-04-26 08:03 | Day surgery (SDC) | payer MEDICARE ==
[2017-04-26] MEDS ORDERED: Midazolam 1 MG/ML 2 ML SDV ONE (09:00)
[2017-04-26] MEDS ORDERED: fentaNYL 100 MCG/2 ML SDV ONE (09:00)
[2017-04-26] MEDS ORDERED: Propofol 200 MG/20 ML SDV ONE (09:00)
[2017-04-26] MEDS ORDERED: Dextrose 5%-Lactated Ringers 1,000 ML IV SCH (09:00)
[2017-04-26 12:02] VITALS: BP 133/76
--- NOTE | 2017-04-29 10:41 | OR ---
DATE OF PROCEDURE: 04/26/2017 PREOPERATIVE DIAGNOSIS: History of Crohn's disease, status post right colectomy. POSTOPERATIVE DIAGNOSES: 1. History of Crohn's disease, status post right colectomy, with no grossly evident recurrent or persistent Crohn's disease involving the colon or distal small bowel. 2. Uncomplicated left colonic diverticulosis. OPERATIVE PROCEDURE: Flexible colonoscopy. ANESTHESIA: IV sedation. INDICATION FOR PROCEDURE: This is a 67-year-old male presenting for a followup colonoscopy. The patient is status post right colectomy for persistent stricture of the distalmost small bowel and has clinically done quite well following the surgical resection. For general followup, he is to undergo a colonoscopy with biopsies or polypectomy as indicated. Potential risks including bleeding and perforation were discussed, and the patient wishes to proceed. DETAILS OF PROCEDURE: The patient was taken to the operating room and placed in a left lateral decubitus position. IV sedation was administered, after which the initial digital rectal exam was performed and was unremarkable. The colonoscope was then passed into the rectum with retroflexion revealing uncomplicated hemorrhoidal columns. The scope was eventually passed to the level of the transverse colon anastomosis and then roughly 8 or 10 cm into the small bowel proximal to the anastomosis. Overall, the only findings of note were that of some left colonic diverticulosis. There were no areas of gross inflammation involving the colon or the visualized portion of the small bowel and, otherwise, no polyps or other signs of neoplasia. The scope was then withdrawn, the above findings were reconfirmed, and the procedure then concluded. The patient was taken to the recovery room in a satisfactory condition. FOLLOWUP: The timing of followup colonoscopy I will leave up to the consulting Gastroenterology group in [place]. The patient will be following up with Mirna Hsieh CNP, in the GI group at [place]. Elkin Arias MD /[id number]
== END 2017-04-26 12:07 | disposition home or self-care (01) ==
LOC: JP.SDS 08:03
PROVIDERS: ATTEND Surgery
DX: K57.30 Diverticulosis of large intestine without perforation or abscess without bleeding (principal); I10 Essential (primary) hypertension; J44.9 Chronic obstructive pulmonary disease, unspecified; K21.9 Gastro-esophageal reflux disease without esophagitis; E03.9 Hypothyroidism, unspecified; F41.9 Anxiety disorder, unspecified; F32.9 Major depressive disorder, single episode, unspecified; Z90.49 Acquired absence of other specified parts of digestive tract; Z88.2 Allergy status to sulfonamides; Z88.8 Allergy status to other drugs, medicaments and biological substances; Z91.013 Allergy to seafood
CPT/HCPCS: 45378; J2704; J3010; J7042; J2250

== ENCOUNTER 2018-10-06 09:44 | Inpatient (IN) | payer MEDICARE ==
[2018-10-06] MEDS ORDERED: Sodium Chloride 0.9% 1,000 ML IV SCH ×3 (10:15→15:15)
[2018-10-06] MEDS ORDERED: Albuterol 0.083% 2.5 MG/3 ML Neb Soln NEB ONE (10:19)
--- NOTE | 2018-10-06 10:25 | EDM.PDOC ---
ED HPI GENERAL MEDICAL PROBLEM - General Chief Complaint: Respiratory Problem Stated Complaint: BALANCE/SOB Time Seen by Provider: 10/06/18 10:21 Source of Information: Reports: Patient History Limitations: Reports: No Limitations - History of Present Illness INITIAL COMMENTS - FREE TEXT/NARRATIVE: pt arrived very weak and off balance. He has been sick for several days at home with a cough and chest congestion. He has been so weak he can bearly sit up and he is very off balance when he gets up to go to the bathroom. He has been drinking fluids but he has not been eating, He always has loose stools. He has had multiple bowel resections because of crohns diseae. He is not vomiting but he has run some very high fevers. He does not have a fever today. Onset: Gradual, Other ( Last 2-3 days. ) Duration: Day(s): Location: Reports: Chest, Other (marked weakness. ) Associated Symptoms: Reports: Cough, Fever/Chills, Loss of Appetite, Other ( loose stools. ) Generalized Pain Score (Numeric/FACES): 4 - Related Data Allergies Allergy/AdvReac Type Severity Reaction Status Date / Time Sulfa (Sulfonamide Allergy Unknown unknown Verified 10/06/18 10:16 Antibiotics) hydromorphone [From Dilaudid] Allergy Itching Verified 10/06/18 10:16 infliximab [From Remicade] Allergy Hives Verified 10/06/18 10:16 adalimumab [From Humira] AdvReac Dizziness Verified 10/06/18 10:16 shellfish derived AdvReac Vomiting Verified 10/06/18 10:16 Home Meds: Home Meds Cholecalciferol (Vitamin D3) [Vitamin D3] 2,000 unit PO DAILY 07/24/13 [History] Methscopolamine [place] [Pamine] 2.5 mg PO BID 07/24/13 [History] Minocycline HCl 50 mg PO DAILY 07/24/13 [History] Phenazopyridine [Pyridium] 200 mg PO TID PRN 07/24/13 [History] diazePAM [Valium] 15 mg PO BEDTIME 07/24/13 [History] Levothyroxine Sodium [Tirosint] 88 mcg PO DAILY 02/18/14 [History] Pantoprazole [ProTONIX] 40 mg PO ACBREAKFAST 10/01/15 [History] Albuterol/Ipratropium [Combivent Respimat] 1 puff IH Q4H PRN 09/10/16 [History] Hydrocodone/Acetaminophen [Hydrocodon-Acetaminophn 10-300] 1 tab PO Q6H [History] Potassium Chloride 40 meq PO DAILY 09/10/16 [History] predniSONE [Deltasone] 5 mg PO DAILY 09/10/16 [History] Losartan [Cozaar] 12.5 mg PO DAILY 09/29/16 [History] Metoclopramide HCl [Reglan] 10 mg PO Q6HR PRN #30 tablet 10/05/16 [Rx] Loperamide [Imodium] 2 mg PO Q6H PRN 10/06/18 [History] Past Medical History HEENT History: Reports: Allergic Rhinitis, Cataract, Impaired Vision, Sinusitis Cardiovascular History: Reports: Hypertension Other Cardiovascular History: Atypical Chest Pain Respiratory History: Reports: COPD, Pneumothorax, Other (See Below) Other Respiratory History: pleurisy Gastrointestinal History: Reports: Bowel Obstruction, Chronic Diarrhea, Diverticulosis, GERD, Hemorrhoids, Other (See Below) Other Gastrointestinal History: Chrons Genitourinary History: Reports: Renal Calculus, Other (See Below) Other Genitourinary History: 12 kidney stones per year. Musculoskeletal History: Reports: Back Pain, Chronic, Osteoarthritis Neurological History: Reports: Headaches, Chronic Psychiatric History: Reports: Anxiety, Depression, Panic Attack Endocrine/Metabolic History: Reports: Hypothyroidism, Osteopenia Hematologic History: Reports: B12 Deficiency, Iron Deficiency Immunologic History: Reports: None Dermatologic History: Reports: Eczema, Psoriasis - Infectious Disease History Infectious Disease History: Reports: Chicken Pox, Measles, Pertussis (Whooping Cough) - Past Surgical History Head Surgeries/Procedures: Reports: None HEENT Surgical History: Reports: Cataract Surgery, Eye Surgery, Oral Surgery, Other (See Below) GI Surgical History: Reports: Appendectomy, Colon, Colonoscopy, Hernia Repair/ Other, Polypectomy, Other (See Below) Other GI Surgeries/Procedures: colon resection Male Surgical History: Reports: Kidney Stone Extraction, Lithotripsy ([facility]) Endocrine Surgical History: Reports: None Dermatological Surgical History: Reports: None Social & Family History - Family History Family Medical History: Noncontributory - Tobacco Use Smoking Status *Q: Current Every Day Smoker Years of Tobacco use: 50 Packs/Tins Daily: 1.5 - Caffeine Use Caffeine Use: Reports: Coffee, Tea Other Caffeine Use: 2 cups - Recreational Drug Use Recreational Drug Use: No ED ROS GENERAL - Review of Systems Review Of Systems: See Below Constitutional: Reports: Fever, Chills, Malaise, Weakness HEENT: Reports: No Symptoms Respiratory: Reports: Shortness of Breath, Cough Cardiovascular: Reports: No Symptoms Endocrine: Reports: No Symptoms GI/Abdominal: Reports: No Symptoms : Reports: No Symptoms Musculoskeletal: Reports: No Symptoms Skin: Reports: No Symptoms ED EXAM, GENERAL - Physical Exam Exam: See Below Free Text/Narrative:: pt arrived with being sob and running a high temp . He is coughing alot. He has had a high fever to start with. Exam Limited By: No Limitations General Appearance: Alert, Anxious, Moderate Distress, Other (pupils are equal and reactive to lite. ) Ears: Normal TMs Nose: Normal Inspection Throat/Mouth: Normal Inspection Head: Atraumatic Neck: Normal Inspection Respiratory/Chest: Decreased Breath Sounds, Other (pt started with low o2 sats. ) Cardiovascular: Regular Rate, Rhythm, Tachycardia GI/Abdominal: Soft, Non-Tender (Male) Exam: Deferred Rectal (Males) Exam: Other (pt has a known diagnosis of crohns. He has had multiple bowel resections. ) Back Exam: Normal Inspection Extremities: Normal Inspection Neurological: Alert, Oriented, Normal Cognition Psychiatric: Normal Affect Course - Vital Signs Last Recorded V/S: Last Vital Signs Temp 36.0 C 10/07/18 08:00 Pulse 60 10/07/18 08:00 Resp 25 H 10/07/18 08:00 BP 137/92 H 10/07/18 08:00 Pulse Ox 97 10/07/18 08:00 - Orders/Labs/Meds Orders: Active Orders 24 hr Category Date Time Status CULTURE BLOOD [BC] Urgent Lab 10/06/18 10:10 Received CULTURE BLOOD [BC] Urgent Lab 10/06/18 10:15 Received CULTURE STREP A CONFIRMATION [RM] Stat Lab 10/06/18 10:29 Results STREP SCRN A RAPID W CULT CONF [RM] Stat Lab 10/06/18 10:29 Results Blood Culture x2 Reflex Set [OM.PC] Urgent Oth 10/06/18 10:25 Ordered EKG 12 Lead [EK] Routine Ther 10/06/18 11:08 Stop Req Medication Orders Acetaminophen (Tylenol) 650 mg PO Q4H PRN PRN Reason: Fever Albuterol (Proventil Neb Soln) 2.5 mg NEB Q4H PRN PRN Reason: Shortness Of Breath/wheezing Alprazolam (Xanax) 0.5 mg PO BEDTIME [facility] Last Admin: 10/06/18 20:57 Dose: 0.5 mg Benzonatate (Tessalon Perles) 100 mg PO TID PRN PRN Reason: Cough Diazepam (Valium.) 15 mg PO BEDTIME PRN PRN Reason: SLEEP Last Admin: 10/06/18 21:00 Dose: 15 mg Diphenhydramine HCl (Benadryl) 25 mg PO BEDTIME [facility] Last Admin: 10/06/18 20:57 Dose: 25 mg Sodium Chloride (Normal Saline) 1,000 mls @ 125 mls/hr IV ASDIRECTED [facility] Last Admin: 10/07/18 08:05 Dose: 125 mls/hr Infusion: 10/07/18 08:05 Dose: 125 mls/hr Admin: 10/07/18 00:07 Dose: 125 mls/hr Infusion: 10/07/18 00:07 Dose: 125 mls/hr Admin: 10/06/18 16:19 Dose: 125 mls/hr Infusion: 10/06/18 16:19 Dose: 125 mls/hr Admin: 10/06/18 13:45 Dose: 125 mls/hr Levofloxacin 250 mg/ (Levofloxacin 500 mg) 750 mg PO Q48H [facility] Levothyroxine Sodium (Synthroid) 88 mcg PO ACBREAKFAST [facility] Last Admin: 10/07/18 08:07 Dose: 88 mcg Loperamide HCl (Imodium) 2 mg PO Q6H PRN PRN Reason: Diarrhea Melatonin (Melatonin) 12 mg PO BEDTIME [facility] Last Admin: 10/06/18 20:57 Dose: 12 mg Metoclopramide HCl (Reglan) 10 mg PO Q6HR PRN PRN Reason: Nausea Nicotine (Habitrol) 14 mg TRDERM DAILY [facility] Last Admin: 10/07/18 08:07 Dose: 14 mg Admin: 10/06/18 13:47 Dose: 14 mg Methscopolamine 2.5 (Mg (Ptom)) 0 mg PO BID [facility] Last Admin: 10/07/18 08:18 Dose: 2.5 mg Ondansetron HCl (Zofran Odt) 4 mg PO Q6H PRN PRN Reason: Nausea able to take PO Ondansetron HCl (Zofran) 4 mg IV Q6H PRN PRN Reason: Nausea/Vomiting Pantoprazole Sodium (Protonix) 40 mg PO ACBREAKFAST [facility] Last Admin: 10/07/18 08:06 Dose: 40 mg Phenazopyridine HCl (Urinary Pain Relief) 190 mg PO TID PRN PRN Reason: PAIN Prednisone (Prednisone) 5 mg PO DAILY [facility] Last Admin: 10/07/18 08:07 Dose: 5 mg Labs: Laboratory Tests 10/06/18 10/06/18 10/06/18 Range/Units 10:08 10:15 10:15 WBC 7.7 (4.5-11.0) K/uL RBC 4.80 (4.30-5.90) M/uL Hgb 16.1 H D (12.0-15.0) g/dL Hct 47.8 (40.0-54.0) % MCV 100 H (80-98) fL MCH 34 H (27-31) pg MCHC 34 (32-36) % Plt Count 131 L (150-400) K/uL Neut % (Auto) 79 H (36-66) % Lymph % (Auto) 12 L (24-44) % [place] % (Auto) 10 H (2-6) % Eos % (Auto) 0 L (2-4) % Baso % (Auto) 0 (0-1) % Sodium 131 L (140-148) mmol/L Potassium 4.2 (3.6-5.2) mmol/L Chloride 99 L (100-108) mmol/L Carbon Dioxide 20 L (21-32) mmol/L Anion Gap 16.2 H (5.0-14.0) mmol/L BUN 19 H D (7-18) mg/dL Creatinine 2.3 H D (0.8-1.3) mg/dL Est Cr Clr Drug Dosing 23.99 mL/min Estimated GFR (MDRD) 29 L (>60) Glucose 125 H (74-106) mg/dL Lactic Acid (0.4-2.0) mmol/L Calcium 8.9 (8.5-10.1) mg/dL Total Bilirubin 0.3 (0.2-1.0) mg/dL AST 35 (15-37) U/L ALT 15 (12-78) U/L Alkaline Phosphatase 61 (46-116) U/L C-Reactive Protein (0.0-0.3) mg/dL Total Protein 6.9 (6.4-8.2) g/dL Albumin 3.0 L (3.4-5.0) g/dL Globulin 3.9 H (2.3-3.5) g/dL Albumin/Globulin Ratio 0.8 L (1.2-2.2) Urine Color [place] Urine Appearance Clear Urine pH 5.0 (4.5-8.0) Ur Specific [place] 1.015 (1.008-1.030) Urine Protein Negative (NEGATIVE) mg/dL Urine Glucose (UA) Normal (NEGATIVE) mg/dL Urine Ketones Negative (NEGATIVE) mg/dL Urine Occult Blood Negative (NEGATIVE) Urine Nitrite Negative (NEGAITVE) Urine Bilirubin Negative (NEGATIVE) Urine Urobilinogen Normal (NORMAL) mg/dL Ur Leukocyte Esterase Negative (NEGATIVE) Urine RBC 0-5 (0-5) Urine WBC Not seen (0-5) Ur Epithelial Cells Few Amorphous Sediment Few Urine Bacteria Not seen Urine Mucus Not seen 10/06/18 10/06/18 Range/Units 10:15 10:15 WBC (4.5-11.0) K/uL RBC (4.30-5.90) M/uL Hgb (12.0-15.0) g/dL Hct (40.0-54.0) % MCV (80-98) fL MCH (27-31) pg MCHC (32-36) % Plt Count (150-400) K/uL Neut % (Auto) (36-66) % Lymph % (Auto) (24-44) % [place] % (Auto) (2-6) % Eos % (Auto) (2-4) % Baso % (Auto) (0-1) % Sodium (140-148) mmol/L Potassium (3.6-5.2) mmol/L Chloride (100-108) mmol/L Carbon Dioxide (21-32) mmol/L Anion Gap (5.0-14.0) mmol/L BUN (7-18) mg/dL Creatinine (0.8-1.3) mg/dL Est Cr Clr Drug Dosing mL/min Estimated GFR (MDRD) (>60) Glucose (74-106) mg/dL Lactic Acid 3.1 H (0.4-2.0) mmol/L Calcium (8.5-10.1) mg/dL Total Bilirubin (0.2-1.0) mg/dL AST (15-37) U/L ALT (12-78) U/L Alkaline Phosphatase (46-116) U/L C-Reactive Protein 12.95 H (0.0-0.3) mg/dL Total Protein (6.4-8.2) g/dL Albumin (3.4-5.0) g/dL Globulin (2.3-3.5) g/dL Albumin/Globulin Ratio (1.2-2.2) Urine Color Urine Appearance Urine pH (4.5-8.0) Ur Specific [place] (1.008-1.030) Urine Protein (NEGATIVE) mg/dL Urine Glucose (UA) (NEGATIVE) mg/dL Urine Ketones (NEGATIVE) mg/dL Urine Occult Blood (NEGATIVE) Urine Nitrite (NEGAITVE) Urine Bilirubin (NEGATIVE) Urine Urobilinogen (NORMAL) mg/dL Ur Leukocyte Esterase (NEGATIVE) Urine RBC (0-5) Urine WBC (0-5) Ur Epithelial Cells Amorphous Sediment Urine Bacteria Urine Mucus Meds: Medications Generic Name Dose Route Start Last Admin Trade Name Freq PRN Reason Stop Dose Admin Acetaminophen 650 mg 10/06/18 12:54 Tylenol PO Q4H PRN Fever Albuterol 2.5 mg 10/06/18 12:54 Proventil Neb Soln NEB Q4H PRN Shortness Of Breath/wheezing Alprazolam 0.5 mg 10/06/18 21:00 10/06/18 20:57 Xanax PO 0.5 mg BEDTIME [facility] Administration Benzonatate 100 mg 10/06/18 12:54 Tessalon Perles PO TID PRN Cough Diazepam 15 mg 10/06/18 13:08 10/06/18 21:00 Valium. PO 15 mg BEDTIME PRN Administration SLEEP Diphenhydramine HCl 25 mg 10/06/18 21:00 10/06/18 20:57 Benadryl PO 25 mg BEDTIME [facility] Administration Sodium Chloride 1,000 mls @ 125 mls/hr 10/06/18 12:54 10/07/18 08:05 Normal Saline IV 125 mls/hr ASDIRECTED [facility] Administration Levofloxacin 250 mg/ 750 mg 10/08/18 12:00 Levofloxacin 500 mg PO Q48H [facility] Levothyroxine Sodium 88 mcg 10/07/18 07:30 10/07/18 08:07 Synthroid PO 88 mcg ACBREAKFAST [facility] Administration Loperamide HCl 2 mg 10/06/18 12:54 Imodium PO Q6H PRN Diarrhea Melatonin 12 mg 10/06/18 21:00 10/06/18 20:57 Melatonin PO 12 mg BEDTIME [facility] Administration Metoclopramide HCl 10 mg 10/06/18 12:54 Reglan PO Q6HR PRN Nausea Nicotine 14 mg 10/06/18 13:15 10/07/18 08:07 Habitrol TRDERM 14 mg DAILY [facility] Administration Methscopolamine 2.5 0 mg 10/07/18 09:00 10/07/18 08:18 Mg (Ptom) PO 2.5 mg BID [facility] Administration Ondansetron HCl 4 mg 10/06/18 12:54 Zofran Odt PO Q6H PRN Nausea able to take PO Ondansetron HCl 4 mg 10/06/18 12:54 Zofran IV Q6H PRN Nausea/Vomiting Pantoprazole Sodium 40 mg 10/07/18 07:30 10/07/18 08:06 Protonix PO 40 mg ACBREAKFAST [facility] Administration Phenazopyridine HCl 190 mg 10/06/18 13:08 Urinary Pain Relief PO TID PRN PAIN Prednisone 5 mg 10/07/18 09:00 10/07/18 08:07 Prednisone PO 5 mg DAILY [facility] Administration Discontinued Medications Generic Name Dose Route Start Last Admin Trade Name Freq PRN Reason Stop Dose Admin Hydrocodone Bitart/Acetaminophen 1 tab 10/06/18 12:04 10/06/18 12:53 [place] 325-10 Mg PO 10/06/18 12:05 Not Given ONETIME ONE Albuterol 2.5 mg 10/06/18 10:19 10/06/18 10:30 Proventil Neb Soln NEB 10/06/18 10:20 2.5 mg ONETIME ONE Administration Hydrocortisone Sodium Succinate 100 mg 10/06/18 17:30 10/06/18 17:17 Solu-Cortef IVPUSH 10/06/18 17:31 100 mg ONETIME ONE Administration Sodium Chloride 1,000 mls @ 999 mls/hr 10/06/18 10:15 10/06/18 10:20 Normal Saline IV 999 mls/hr ASDIRECTED [facility] Administration Sodium Chloride 1,000 mls @ 999 mls/hr 10/06/18 11:00 10/06/18 11:09 Normal Saline IV 999 mls/hr ASDIRECTED [facility] Administration Levofloxacin/Dextrose 750 mg/ 150 mls @ 100 mls/hr 10/06/18 11:02 10/06/18 11 :10 Premix IV 10/06/18 12:31 100 mls/hr ONETIME ONE Administration Sodium Chloride 1,000 mls @ 999 mls/hr 10/06/18 15:15 10/06/18 15:13 Normal Saline IV 10/06/18 16:16 999 mls/hr ASDIRECTED [facility] Administration Oseltamivir Phosphate 30 mg 10/06/18 12:54 10/06/18 13:47 Tamiflu PO 10/06/18 12:55 30 mg ONETIME ONE Administration - Re-Assessments/Exams Free Text/Narrative Re-Assessment/Exam: 10/06/18 10:51 Pt arrived with a low blood pressure. He has been very weak and off balance when he gets up at home. He has been ill for several days at home. He has been coughing and very congested. He did start out with a high temp. pt has a creatnine of 2.4. He has a normal wbc. He has a elevated lactic acid. He has been given levofloxin 750 iv. He had a chest xray which shows a questionable infiltrate present. 10/06/18 11:04 Departure - Departure Time of Disposition: 11:00 Disposition: Admitted As Inpatient 67 Condition: Fair Clinical Impression: Dehydration, Renal insufficiency, Pneumonia - Discharge Information - My Orders Last 24 Hours: My Active Orders 10/06/18 10:10 CULTURE BLOOD [BC] Urgent 10/06/18 10:15 CULTURE BLOOD [BC] Urgent 10/06/18 10:25 Blood Culture x2 Reflex Set [OM.PC] Urgent 10/06/18 10:29 CULTURE STREP A CONFIRMATION [RM] Stat STREP SCRN A RAPID W CULT CONF [RM] Stat 10/06/18 11:08 EKG 12 Lead [EK] Routine - Assessment/Plan Last 24 Hours: My Active Orders 10/06/18 10:10 CULTURE BLOOD [BC] Urgent 10/06/18 10:15 CULTURE BLOOD [BC] Urgent 10/06/18 10:25 Blood Culture x2 Reflex Set [OM.PC] Urgent 10/06/18 10:29 CULTURE STREP A CONFIRMATION [RM] Stat STREP SCRN A RAPID W CULT CONF [RM] Stat 10/06/18 11:08 EKG 12 Lead [EK] Routine
[2018-10-06] MEDS ORDERED: Levofloxacin/Dextrose 5%-Water 750 MG in Premix Bag 1 BAG IV ONE (11:02)
--- NOTE | 2018-10-06 11:32 | CRLCR ---
HISTORY: Cough and congestion. TECHNIQUE: One view of the chest. COMPARISON: CT of the chest 08/16/2018. FINDINGS: Lungs are hyperinflated compatible with COPD with emphysematous change present. There is no focal lung infiltrate. No pneumothorax or pleural effusion. Cardiac size within normal limits. IMPRESSION: 1. COPD/emphysema. 2. No focal lung infiltrate. Dictated by Drake Cruz MD @ 10/06/2018 11:31:35 AM Dictated by: Drake Cruz MD @ 10/06/2018 11:31:38 (Electronically Signed)
[2018-10-06] MEDS ORDERED: Acetaminophen/HYDROcodone 325-10 MG Tab PO ONE (12:04)
--- NOTE | 2018-10-06 12:21 | PCM.HP ---
H&P History of Present Illness - General Date of Service: 10/06/18 Admit Problem/Dx: Admission Diagnosis/Problem Admission Diagnosis/Problem Acute bronchitis Source of Information: Patient, Family, Provider History Limitations: Reports: No Limitations - History of Present Illness Initial Comments - Free Text/Narative: Tien presented to the emergency room today with 2 days of progressive cough, shortness of breath and weakness. He reports a mild cough for several days but it has been worse over the past 2 days. He is now short of breath with even minimal activity. He has been more somnolent than usual and has been aggressively week. He has been losing his balance but has not fallen and injured himself as of yet. Cough has been productive for green sputum. He's had subjective fevers as well as shaking chills but has not measured any temperatures at home. No reports of chest pain. He has a mild sore throat. No rhinorrhea. No change in bowel or bladder habits from baseline. Appetite and energy have been significantly decreased from baseline. His had a upper respiratory tract infection about one week ago but has been recovering. Workup in the emergency room was suggestive of sepsis with bronchitis being the likely inciting infection. Chest x-ray was clear. He has lactic acidosis as well as acute kidney injury. He has received his 30 mL/kg bolus as well as a dose of levofloxacin. He will be admitted to the intensive care unit with persistent hypotension. Generalized Pain Score (Numeric/FACES): 4 - Related Data Allergies/Adverse Reactions: Allergies Allergy/AdvReac Type Severity Reaction Status Date / Time Sulfa (Sulfonamide Allergy Unknown unknown Verified 10/06/18 10:16 Antibiotics) hydromorphone [From Dilaudid] Allergy Itching Verified 10/06/18 10:16 infliximab [From Remicade] Allergy Hives Verified 10/06/18 10:16 adalimumab [From Humira] AdvReac Dizziness Verified 10/06/18 10:16 shellfish derived AdvReac Vomiting Verified 10/06/18 10:16 Home Medications: Home Meds Cholecalciferol (Vitamin D3) [Vitamin D3] 2,000 unit PO DAILY 07/24/13 [History] Methscopolamine [place] [Pamine] 2.5 mg PO BID 07/24/13 [History] Minocycline HCl 50 mg PO DAILY 07/24/13 [History] Phenazopyridine [Pyridium] 200 mg PO TID PRN 07/24/13 [History] diazePAM [Valium] 15 mg PO BEDTIME 07/24/13 [History] Levothyroxine Sodium [Tirosint] 88 mcg PO DAILY 02/18/14 [History] Pantoprazole [ProTONIX] 40 mg PO ACBREAKFAST 10/01/15 [History] Albuterol/Ipratropium [Combivent Respimat] 1 puff IH Q4H PRN 09/10/16 [History] Hydrocodone/Acetaminophen [Hydrocodon-Acetaminophn 10-300] 1 tab PO Q6H [History] Potassium Chloride 40 meq PO DAILY 09/10/16 [History] predniSONE [Deltasone] 5 mg PO DAILY 09/10/16 [History] Losartan [Cozaar] 12.5 mg PO DAILY 09/29/16 [History] Metoclopramide HCl [Reglan] 10 mg PO Q6HR PRN #30 tablet 10/05/16 [Rx] Loperamide [Imodium] 2 mg PO Q6H PRN 10/06/18 [History] Past Medical History HEENT History: Reports: Allergic Rhinitis, Cataract, Impaired Vision, Sinusitis Cardiovascular History: Reports: Hypertension Other Cardiovascular History: Atypical Chest Pain Respiratory History: Reports: COPD, Pneumothorax, Other (See Below) Other Respiratory History: pleurisy Gastrointestinal History: Reports: Bowel Obstruction, Chronic Diarrhea, Diverticulosis, GERD, Hemorrhoids, Other (See Below) Other Gastrointestinal History: Chrons Genitourinary History: Reports: Renal Calculus, Other (See Below) Other Genitourinary History: 12 kidney stones per year. Musculoskeletal History: Reports: Back Pain, Chronic, Osteoarthritis Neurological History: Reports: Headaches, Chronic Psychiatric History: Reports: Anxiety, Depression, Panic Attack Endocrine/Metabolic History: Reports: Hypothyroidism, Osteopenia Hematologic History: Reports: B12 Deficiency, Iron Deficiency Immunologic History: Reports: None Dermatologic History: Reports: Eczema, Psoriasis - Infectious Disease History Infectious Disease History: Reports: Chicken Pox, Measles, Pertussis (Whooping Cough) - Past Surgical History Head Surgeries/Procedures: Reports: None HEENT Surgical History: Reports: Cataract Surgery, Eye Surgery, Oral Surgery, Other (See Below) GI Surgical History: Reports: Appendectomy, Colon, Colonoscopy, Hernia Repair/ Other, Polypectomy, Other (See Below) Other GI Surgeries/Procedures: colon resection Male Surgical History: Reports: Kidney Stone Extraction, Lithotripsy ([facility]) Endocrine Surgical History: Reports: None Dermatological Surgical History: Reports: None Social & Family History - Family History Family Medical History: Noncontributory - Tobacco Use Smoking Status *Q: Current Every Day Smoker Years of Tobacco use: 50 Packs/Tins Daily: 1.5 - Caffeine Use Caffeine Use: Reports: Coffee, Tea Other Caffeine Use: 2 cups - Alcohol Use Alcohol Use History: No - Recreational Drug Use Recreational Drug Use: No H&P Review of Systems - Review of Systems: Review Of Systems: See Below Free Text/Narrative: A complete 12 point review of systems was obtained. Pertinent positives and negatives are noted in the history of present illness. All other systems were reviewed and were negative except as noted. Exam - Exam Exam: See Below - Vital Signs Vital Signs: Last Vital Signs Temp 36.6 C 10/06/18 10:04 Pulse 89 10/06/18 10:04 Resp 18 10/06/18 10:59 BP 82/60 L 10/06/18 10:59 Pulse Ox 95 10/06/18 10:59 Weight: 54.431 kg - Exam Quality Assessment: No: Supplemental Oxygen General: Alert, Oriented, Cooperative, Mild Distress HEENT: Conjunctiva Clear. No: Mucosa Moist & [place] (dry), Scleral Icterus Neck: Supple, Trachea Midline. No: Lymphadenopathy, JVD Lungs: Clear to Auscultation, Normal Respiratory Effort, Rhonchi (mild upper resp rhonchi) Cardiovascular: Regular Rate, Regular Rhythm. No: Systolic Murmur GI/Abdominal Exam: Normal Bowel Sounds, Soft, No Distention, Tender (mild RLQ) Back Exam: Normal Inspection, Full Range of Motion Extremities: No Pedal Edema. No: Increased Warmth Peripheral Pulses: 2+: Dorsalis Pedis (L), Dorsalis Pedis (R) Skin: Warm, Dry Neuro Extensive - Mental Status: Alert, Oriented x3, Nl Response to Commands Neuro Extensive - Motor, Sensory, Reflexes: CN II-XII Intact. No: Dysarthria, Abnormal Motor, Tremor Psychiatric: Alert, Normal Affect - Patient Data Lab Results Last 24 hrs: Laboratory Results - last 24 hr 03/10/06/18 10/06/18 Range/Units 10:15 10:15 10:15 WBC 7.7 (4.5-11.0) K/uL RBC 4.80 (4.30-5.90) M/uL Hgb 16.1 H D (12.0-15.0) g/dL Hct 47.8 (40.0-54.0) % MCV 100 H (80-98) fL MCH 34 H (27-31) pg MCHC 34 (32-36) % Plt Count 131 L (150-400) K/uL Neut % (Auto) 79 H (36-66) % Lymph % (Auto) 12 L (24-44) % Barry % (Auto) 10 H (2-6) % Eos % (Auto) 0 L (2-4) % Baso % (Auto) 0 (0-1) % Sodium 131 L (140-148) mmol/L Potassium 4.2 (3.6-5.2) mmol/L Chloride 99 L (100-108) mmol/L Carbon Dioxide 20 L (21-32) mmol/L Anion Gap 16.2 H (5.0-14.0) mmol/L BUN 19 H D (7-18) mg/dL Creatinine 2.3 H D (0.8-1.3) mg/dL Est Cr Clr Drug Dosing 23.99 mL/min Estimated GFR (MDRD) 29 L (>60) Glucose 125 H (74-106) mg/dL Lactic Acid 3.1 H (0.4-2.0) mmol/L Calcium 8.9 (8.5-10.1) mg/dL Total Bilirubin 0.3 (0.2-1.0) mg/dL AST 35 (15-37) U/L ALT 15 (12-78) U/L Alkaline Phosphatase 61 (46-116) U/L C-Reactive Protein (0.0-0.3) mg/dL Total Protein 6.9 (6.4-8.2) g/dL Albumin 3.0 L (3.4-5.0) g/dL Globulin 3.9 H (2.3-3.5) g/dL Albumin/Globulin Ratio 0.8 L (1.2-2.2) 10/06/18 Range/Units 10:15 WBC (4.5-11.0) K/uL RBC (4.30-5.90) M/uL Hgb (12.0-15.0) g/dL Hct (40.0-54.0) % MCV (80-98) fL MCH (27-31) pg MCHC (32-36) % Plt Count (150-400) K/uL Neut % (Auto) (36-66) % Lymph % (Auto) (24-44) % Barry % (Auto) (2-6) % Eos % (Auto) (2-4) % Baso % (Auto) (0-1) % Sodium (140-148) mmol/L Potassium (3.6-5.2) mmol/L Chloride (100-108) mmol/L Carbon Dioxide (21-32) mmol/L Anion Gap (5.0-14.0) mmol/L BUN (7-18) mg/dL Creatinine (0.8-1.3) mg/dL Est Cr Clr Drug Dosing mL/min Estimated GFR (MDRD) (>60) Glucose (74-106) mg/dL Lactic Acid (0.4-2.0) mmol/L Calcium (8.5-10.1) mg/dL Total Bilirubin (0.2-1.0) mg/dL AST (15-37) U/L ALT (12-78) U/L Alkaline Phosphatase (46-116) U/L C-Reactive Protein 12.95 H (0.0-0.3) mg/dL Total Protein (6.4-8.2) g/dL Albumin (3.4-5.0) g/dL Globulin (2.3-3.5) g/dL Albumin/Globulin Ratio (1.2-2.2) Result Diagrams: 10/06/18 10:15 10/06/18 10:15 Oscar Results Last 24 hrs: Microbiology 10/06/18 10:25 Influenza Type A Antigen Screen - Final Nasal Aspirate, Left NEGATIVE INFLUENZA A VIRUS AG Influenza Type B Antigen Screen - Final NEGATIVE INFLUENZA B VIRUS AG 10/06/18 10:29 Group A Streptococcus Rapid Screen - Final Throat NEGATIVE STREP A SCREEN Imaging Impressions Last 24 hrs: CXR - images personally reviewed - lungs are clear with no mass, effusion or infiltrate. Heart size is normal. EKG INTERPRETATION EKG Date: 10/06/18 Rhythm: NSR Rate (Beats/Min): 75 [place]: Normal P-Wave: Present QRS: Normal ST-T: Normal QT: Normal *Q Meaningful Use (ADM) - VTE Risk Assess *Q Each Risk Factor Represents 1 Point: Sepsis, Serious lung disease including pneumonia Total Score 1 Point Risk Factors: 2 Each Risk Factor Represents 2 Points: Age 60 - 74 Years Total Score 2 Point Risk Factors: 2 Each Risk Factor Represents 3 Points: None Total Score 3 Point Risk Factors: 0 Each Risk Factor Represents 5 Points: None Total Score 5 Point Risk Factors: 0 Venous Thromboembolism Risk Factor Score *Q: 4 - Problem List (1) Acute bronchitis SNOMED Code(s): 72024867 ICD Code: J20.9 - ACUTE BRONCHITIS, UNSPECIFIED Status: Acute Current Visit: Yes Qualifiers: Bronchitis organism: unspecified organism Qualified Code(s): J20.9 - Acute bronchitis, unspecified (2) Sepsis SNOMED Code(s): 57053514 ICD Code: A41.9 - SEPSIS, UNSPECIFIED ORGANISM Status: Acute Current Visit: Yes Qualifiers: Sepsis type: sepsis due to unspecified organism Qualified Code(s): A41.9 - Sepsis, unspecified organism (3) Acute kidney injury SNOMED Code(s): 43725465 ICD Code: N17.9 - ACUTE KIDNEY FAILURE, UNSPECIFIED Status: Acute Current Visit: Yes (4) Crohns disease SNOMED Code(s): 17511853 ICD Code: K50.90 - CROHN'S DISEASE, UNSPECIFIED, WITHOUT COMPLICATIONS Status: Chronic Current Visit: Yes Qualifiers: Gastrointestinal tract location: small intestine Digestive disease complication type: other complication Qualified Code(s): K50.018 - Crohn's disease of small intestine with other complication (5) Tobacco dependence SNOMED Code(s): 06077955 ICD Code: F17.200 - NICOTINE DEPENDENCE, UNSPECIFIED, UNCOMPLICATED Status : Chronic Current Visit: Yes Problem List Initiated/Reviewed/Updated: Yes Orders Last 24hrs: Active Orders 24 hr Category Date Time Status Patient Status Manage Transfer [TRANSFER] Routine ADT 10/06/18 12:04 Ordered EKG Documentation Completion [RC] ASDIRECTED Care 10/06/18 11:08 Active RT Aerosol Therapy [RC] ASDIRECTED Care 10/06/18 10:20 Active CULTURE BLOOD [BC] Urgent Lab 10/06/18 10:10 Received CULTURE BLOOD [BC] Urgent Lab 10/06/18 10:15 Received CULTURE STREP A CONFIRMATION [] Stat Lab 10/06/18 10:29 Results STREP SCRN A RAPID W CULT CONF [RM] Stat Lab 10/06/18 10:29 Results UA W/MICROSCOPIC [URIN] Urgent Lab 10/06/18 10:08 Ordered Levofloxacin/Dextrose 5%-Water [Levaquin in D5W 750 MG/ Med 10/06/18 11:02 Active 150 ML] 750 mg Premix Bag 1 bag IV ONETIME Sodium Chloride 0.9% [Normal Saline] 1,000 ml Med 10/06/18 10:15 Active IV ASDIRECTED Sodium Chloride 0.9% [Normal Saline] 1,000 ml Med 10/06/18 11:00 Active IV ASDIRECTED Blood Culture x2 Reflex Set [OM.PC] Urgent Oth 10/06/18 10:25 Ordered Resuscitation Status Routine Resus Stat 10/06/18 12:09 Ordered EKG 12 Lead [EK] Routine Ther 10/06/18 11:08 Ordered Medication Orders Sodium Chloride (Normal Saline) 1,000 mls @ 999 mls/hr IV ASDIRECTED [facility] Last Admin: 10/06/18 10:20 Dose: 999 mls/hr Sodium Chloride (Normal Saline) 1,000 mls @ 999 mls/hr IV ASDIRECTED [facility] Last Admin: 10/06/18 11:09 Dose: 999 mls/hr Levofloxacin/Dextrose 750 mg/ (Premix) 150 mls @ 100 mls/hr IV ONETIME ONE Stop: 10/06/18 12:31 Last Admin: 10/06/18 11:10 Dose: 100 mls/hr Assessment/Plan Comment:: ASSESSMENT AND PLAN - Acute bronchitis - compensated by sepsis(hypotension, lactic acidosis and acute kidney injury). Story fits very well with influenza but testing was negative. White count is normal and he is not currently febrile. Not currently requiring oxygen. He has received his 30 mL/kg bolus and broad-spectrum antibiotics. -Continue levofloxacin -Continue IV fluids with boluses as indicated by hypotension -Hold antihypertensive medication -Empiric treatment for influenza -Continue levofloxacin for bronchitis management -Repeat lactic acid -Cardiac monitoring Acute kidney injury - Likely secondary to intravascular volume depletion with poor intake and sepsis. -IV fluids as above -Repeat labs in the morning Crohn's disease - Chronic and stable at this time. Maintenance issues - - DVT prophylaxis - mechanical - GI prophylaxis - PPI - Nutrition - regular diet as tolerated - Miller catheter - not indicated CODE STATUS - DO NOT RESUSCITATE with short trial of intubation acceptable Admission justification - This patient will be admitted for inpatient services and is medically appropriate meeting medical necessity for inpatient admission as outlined in my documentation. I reasonably expect the patient will require inpatient services that span a period time over 2 midnights. I reasonably expect this patient to be discharged or transferred within 96 hours after admission to the Critical [facility]. Disposition - I would anticipate discharge home after the hospital stay Primary care physician - Lisa Curtis M.D.
[2018-10-06] MEDS ORDERED: Albuterol 0.083% 2.5 MG/3 ML Neb Soln NEB PRN (12:54)
[2018-10-06] MEDS ORDERED: Benzonatate 100 MG Cap PO PRN (12:54)
[2018-10-06] MEDS ORDERED: Metoclopramide 10 MG Tab PO PRN (12:54)
[2018-10-06] MEDS ORDERED: Oseltamivir 30 MG Cap PO ONE (12:54)
[2018-10-06] MEDS ORDERED: PHENAZOPYRIDINE 200 MG PO PRN (12:54)
[2018-10-06] MEDS ORDERED: Loperamide 2 MG Cap PO PRN (12:54)
[2018-10-06] MEDS ORDERED: Ondansetron 4 MG/2 ML SDV IV PRN (12:54)
[2018-10-06] MEDS ORDERED: Acetaminophen 325 MG Tab PO PRN (12:54)
[2018-10-06] MEDS ORDERED: Ondansetron 4 MG Tab.DIS PO PRN (12:54)
[2018-10-06] MEDS ORDERED: Phenazopyridine 95 MG Tab PO PRN (13:08)
[2018-10-06] MEDS: Sodium Chloride 0.9% 1,000 ML IV SCH ×2 (13:45→16:19)
[2018-10-06] MEDS: Nicotine 14 MG/24 Hr Patch TRDERM SCH (13:47)
[2018-10-06] MEDS ORDERED: Hydrocortisone Sodium Succinate 100 MG/2 ML SDV IVPUSH ONE (17:30)
[2018-10-06] MEDS: ALPRAZolam 0.5 MG Tab PO SCH (20:57)
[2018-10-06] MEDS: Melatonin 3 MG Tab PO SCH (20:57)
[2018-10-06] MEDS: diphenhydrAMINE 25 MG Cap PO SCH (20:57)
[2018-10-06] MEDS: Diazepam 5 MG Tab PO PRN (21:00)
[2018-10-06] MEDS ORDERED: DIAZEPAM 15 MG PO SCH (21:00)
[2018-10-07] MEDS: Sodium Chloride 0.9% 1,000 ML IV SCH ×2 (00:07→08:05)
[2018-10-07] MEDS: Pantoprazole 40 MG Tab.CR PO SCH (08:06)
[2018-10-07] MEDS: Nicotine 14 MG/24 Hr Patch TRDERM SCH (08:07)
[2018-10-07] MEDS: Levothyroxine 88 MCG Tab PO SCH (08:07)
[2018-10-07] MEDS: METHSCOPOLAMINE PO SCH ×2 (08:18→21:43)
[2018-10-07] MEDS ORDERED: LEVOTHYROXINE SODIUM 88 MCG PO SCH (09:00)
[2018-10-07] MEDS ORDERED: predniSONE 5 MG Tab PO SCH (09:00)
--- NOTE | 2018-10-07 09:29 | PCM.PN ---
- General Info Date of Service: 10/07/18 Subjective Update: yesterday evening following admission the patient had persistent hypotension. He received several fluid boluses and eventually a dose of hydrocortisone. Since that time his blood pressures have been better. He has not had any fevers. Cough remains productive for yellowish sputum. No complaints of chest pain. Muscle aches are better today. Kidney function is much better today. Sputum culture is pending but Gram stain saw a few yeast and a few gram- positive cocci. He did have diarrhea this morning but that is his norm. Functional Status: Reports: Pain Controlled, Tolerating Diet - Review of Systems General: Reports: Weakness. Denies: Fever Pulmonary: Reports: Shortness of Breath, Cough Cardiovascular: Denies: Chest Pain - Patient Data Vitals - Most Recent: Last Vital Signs Temp 36.0 C 10/07/18 08:00 Pulse 60 10/07/18 08:00 Resp 25 H 10/07/18 08:00 BP 137/92 H 10/07/18 08:00 Pulse Ox 97 10/07/18 08:00 Weight - Most Recent: 55 kg I&O - Last 24 Hours: Intake & Output 10/06/18 10/07/18 10/07/18 22:59 06:59 14:59 Intake Total 2051 1707 Output Total 375 125 Balance 1676 1707 -125 Lab Results Last 24 Hours: Laboratory Results - last 24 hr 10/06/18 10/06/18 10/06/18 Range/Units 10:08 10:15 10:15 WBC 7.7 (4.5-11.0) K/uL RBC 4.80 (4.30-5.90) M/uL Hgb 16.1 H D (12.0-15.0) g/dL Hct 47.8 (40.0-54.0) % MCV 100 H (80-98) fL MCH 34 H (27-31) pg MCHC 34 (32-36) % Plt Count 131 L (150-400) K/uL Neut % (Auto) 79 H (36-66) % Lymph % (Auto) 12 L (24-44) % [place] % (Auto) 10 H (2-6) % Eos % (Auto) 0 L (2-4) % Baso % (Auto) 0 (0-1) % Sodium 131 L (140-148) mmol/L Potassium 4.2 (3.6-5.2) mmol/L Chloride 99 L (100-108) mmol/L Carbon Dioxide 20 L (21-32) mmol/L Anion Gap 16.2 H (5.0-14.0) mmol/L BUN 19 H D (7-18) mg/dL Creatinine 2.3 H D (0.8-1.3) mg/dL Est Cr Clr Drug Dosing 23.99 mL/min Estimated GFR (MDRD) 29 L (>60) Glucose 125 H (74-106) mg/dL Lactic Acid (0.4-2.0) mmol/L Calcium 8.9 (8.5-10.1) mg/dL Total Bilirubin 0.3 (0.2-1.0) mg/dL AST 35 (15-37) U/L ALT 15 (12-78) U/L Alkaline Phosphatase 61 (46-116) U/L C-Reactive Protein (0.0-0.3) mg/dL Total Protein 6.9 (6.4-8.2) g/dL Albumin 3.0 L (3.4-5.0) g/dL Globulin 3.9 H (2.3-3.5) g/dL Albumin/Globulin Ratio 0.8 L (1.2-2.2) Urine Color [place] Urine Appearance Clear Urine pH 5.0 (4.5-8.0) Ur Specific [place] 1.015 (1.008-1.030) Urine Protein Negative (NEGATIVE) mg/dL Urine Glucose (UA) Normal (NEGATIVE) mg/dL Urine Ketones Negative (NEGATIVE) mg/dL Urine Occult Blood Negative (NEGATIVE) Urine Nitrite Negative (NEGAITVE) Urine Bilirubin Negative (NEGATIVE) Urine Urobilinogen Normal (NORMAL) mg/dL Ur Leukocyte Esterase Negative (NEGATIVE) Urine RBC 0-5 (0-5) Urine WBC Not seen (0-5) Ur Epithelial Cells Few Amorphous Sediment Few Urine Bacteria Not seen Urine Mucus Not seen 10/06/18 10/06/18 10/06/18 Range/Units 10:15 10:15 14:56 WBC (4.5-11.0) K/uL RBC (4.30-5.90) M/uL Hgb (12.0-15.0) g/dL Hct (40.0-54.0) % MCV (80-98) fL MCH (27-31) pg MCHC (32-36) % Plt Count (150-400) K/uL Neut % (Auto) (36-66) % Lymph % (Auto) (24-44) % [place] % (Auto) (2-6) % Eos % (Auto) (2-4) % Baso % (Auto) (0-1) % Sodium (140-148) mmol/L Potassium (3.6-5.2) mmol/L Chloride (100-108) mmol/L Carbon Dioxide (21-32) mmol/L Anion Gap (5.0-14.0) mmol/L BUN (7-18) mg/dL Creatinine (0.8-1.3) mg/dL Est Cr Clr Drug Dosing mL/min Estimated GFR (MDRD) (>60) Glucose (74-106) mg/dL Lactic Acid 3.1 H 2.1 H (0.4-2.0) mmol/L Calcium (8.5-10.1) mg/dL Total Bilirubin (0.2-1.0) mg/dL AST (15-37) U/L ALT (12-78) U/L Alkaline Phosphatase (46-116) U/L C-Reactive Protein 12.95 H (0.0-0.3) mg/dL Total Protein (6.4-8.2) g/dL Albumin (3.4-5.0) g/dL Globulin (2.3-3.5) g/dL Albumin/Globulin Ratio (1.2-2.2) Urine Color Urine Appearance Urine pH (4.5-8.0) Ur Specific [place] (1.008-1.030) Urine Protein (NEGATIVE) mg/dL Urine Glucose (UA) (NEGATIVE) mg/dL Urine Ketones (NEGATIVE) mg/dL Urine Occult Blood (NEGATIVE) Urine Nitrite (NEGAITVE) Urine Bilirubin (NEGATIVE) Urine Urobilinogen (NORMAL) mg/dL Ur Leukocyte Esterase (NEGATIVE) Urine RBC (0-5) Urine WBC (0-5) Ur Epithelial Cells Amorphous Sediment Urine Bacteria Urine Mucus 10/07/18 10/07/18 Range/Units 04:55 04:55 WBC 3.2 L (4.5-11.0) K/uL RBC 3.74 L (4.30-5.90) M/uL Hgb 12.3 D (12.0-15.0) g/dL Hct 38.0 L (40.0-54.0) % MCV 102 H (80-98) fL MCH 33 H (27-31) pg MCHC 32 (32-36) % Plt Count 93 L (150-400) K/uL Neut % (Auto) (36-66) % Lymph % (Auto) (24-44) % [place] % (Auto) (2-6) % Eos % (Auto) (2-4) % Baso % (Auto) (0-1) % Sodium 137 L (140-148) mmol/L Potassium 4.9 (3.6-5.2) mmol/L Chloride 108 (100-108) mmol/L Carbon Dioxide 24 (21-32) mmol/L Anion Gap 9.9 (5.0-14.0) mmol/L BUN 16 (7-18) mg/dL Creatinine 1.4 H (0.8-1.3) mg/dL Est Cr Clr Drug Dosing 39.42 mL/min Estimated GFR (MDRD) 51 L (>60) Glucose 126 H (74-106) mg/dL Lactic Acid (0.4-2.0) mmol/L Calcium 7.3 L D (8.5-10.1) mg/dL Total Bilirubin (0.2-1.0) mg/dL AST (15-37) U/L ALT (12-78) U/L Alkaline Phosphatase (46-116) U/L C-Reactive Protein (0.0-0.3) mg/dL Total Protein (6.4-8.2) g/dL Albumin (3.4-5.0) g/dL Globulin (2.3-3.5) g/dL Albumin/Globulin Ratio (1.2-2.2) Urine Color Urine Appearance Urine pH (4.5-8.0) Ur Specific [place] (1.008-1.030) Urine Protein (NEGATIVE) mg/dL Urine Glucose (UA) (NEGATIVE) mg/dL Urine Ketones (NEGATIVE) mg/dL Urine Occult Blood (NEGATIVE) Urine Nitrite (NEGAITVE) Urine Bilirubin (NEGATIVE) Urine Urobilinogen (NORMAL) mg/dL Ur Leukocyte Esterase (NEGATIVE) Urine RBC (0-5) Urine WBC (0-5) Ur Epithelial Cells Amorphous Sediment Urine Bacteria Urine Mucus Oscar Results Last 24 Hours: Microbiology 10/06/18 10:29 Quick Strep Confirmation Culture - Preliminary Throat NO GROUP A STREP ISOLATED Group A Streptococcus Rapid Screen - Final NEGATIVE STREP A SCREEN 10/06/18 17:23 Gram Stain - Final Sputum - Expectorated 10/06/18 10:25 Influenza Type A Antigen Screen - Final Nasal Aspirate, Left NEGATIVE INFLUENZA A VIRUS AG Influenza Type B Antigen Screen - Final NEGATIVE INFLUENZA B VIRUS AG Med Orders - Current: Current Medications Acetaminophen (Tylenol) 650 mg PO Q4H PRN PRN Reason: Fever Hydrocodone Bitart/Acetaminophen ([place] 325-10 Mg) 1 tab PO Q4H PRN PRN Reason: Pain (moderate 4-6) Albuterol (Proventil Neb Soln) 2.5 mg NEB Q4H PRN PRN Reason: Shortness Of Breath/wheezing Alprazolam (Xanax) 0.5 mg PO BEDTIME [facility] Last Admin: 10/06/18 20:57 Dose: 0.5 mg Benzonatate (Tessalon Perles) 100 mg PO TID PRN PRN Reason: Cough Diazepam (Valium.) 15 mg PO BEDTIME PRN PRN Reason: SLEEP Last Admin: 10/06/18 21:00 Dose: 15 mg Diphenhydramine HCl (Benadryl) 25 mg PO BEDTIME [facility] Last Admin: 10/06/18 20:57 Dose: 25 mg Sodium Chloride (Normal Saline) 1,000 mls @ 125 mls/hr IV ASDIRECTED [facility] Last Admin: 10/07/18 08:05 Dose: 125 mls/hr Levofloxacin 250 mg/ (Levofloxacin 500 mg) 750 mg PO Q48H [facility] Levothyroxine Sodium (Synthroid) 88 mcg PO ACBREAKFAST [facility] Last Admin: 10/07/18 08:07 Dose: 88 mcg Loperamide HCl (Imodium) 2 mg PO Q6H PRN PRN Reason: Diarrhea Melatonin (Melatonin) 12 mg PO BEDTIME [facility] Last Admin: 10/06/18 20:57 Dose: 12 mg Metoclopramide HCl (Reglan) 10 mg PO Q6HR PRN PRN Reason: Nausea Nicotine (Habitrol) 14 mg TRDERM DAILY [facility] Last Admin: 10/07/18 08:07 Dose: 14 mg Methscopolamine 2.5 (Mg (Ptom)) 0 mg PO BID [facility] Last Admin: 10/07/18 08:18 Dose: 2.5 mg Ondansetron HCl (Zofran Odt) 4 mg PO Q6H PRN PRN Reason: Nausea able to take PO Ondansetron HCl (Zofran) 4 mg IV Q6H PRN PRN Reason: Nausea/Vomiting Pantoprazole Sodium (Protonix) 40 mg PO ACBREAKFAST [facility] Last Admin: 10/07/18 08:06 Dose: 40 mg Phenazopyridine HCl (Urinary Pain Relief) 190 mg PO TID PRN PRN Reason: PAIN Discontinued Medications Hydrocodone Bitart/Acetaminophen ([place] 325-10 Mg) 1 tab PO ONETIME ONE Stop: 10/06/18 12:05 Last Admin: 10/06/18 12:53 Dose: Not Given Albuterol (Proventil Neb Soln) 2.5 mg NEB ONETIME ONE Stop: 10/06/18 10:20 Last Admin: 10/06/18 10:30 Dose: 2.5 mg Hydrocortisone Sodium Succinate (Solu-Cortef) 100 mg IVPUSH ONETIME ONE Stop: 10/06/18 17:31 Last Admin: 10/06/18 17:17 Dose: 100 mg Sodium Chloride (Normal Saline) 1,000 mls @ 999 [facility] Admin: 10/06/18 10:20 Dose: 999 mls/hr Sodium Chloride (Normal Saline) 1,000 mls @ 999 mls/hr IV ASDIRECTED [facility] Last Admin: 10/06/18 11:09 Dose: 999 mls/hr Levofloxacin/Dextrose 750 mg/ (Premix) 150 mls @ 100 mls/hr IV ONETIME ONE Stop: 10/06/18 12:31 Last Admin: 10/06/18 11:10 Dose: 100 mls/hr Sodium Chloride (Normal Saline) 1,000 mls @ 999 mls/hr IV ASDIRECTED [facility] Stop: 10/06/18 16:16 Last Admin: 10/06/18 15:13 Dose: 999 mls/hr Oseltamivir Phosphate (Tamiflu) 30 mg PO ONETIME ONE Stop: 10/06/18 12:55 Last Admin: 10/06/18 13:47 Dose: 30 mg Prednisone (Prednisone) 5 mg PO DAILY [facility] Last Admin: 10/07/18 08:07 Dose: 5 mg - Exam Quality Assessment: No: Supplemental Oxygen General: Alert, Oriented, Cooperative, No Acute Distress Lungs: Normal Respiratory Effort, Rhonchi (mod upper resp), Wheezing (mild diffuse exp) Cardiovascular: Regular Rate, Regular Rhythm GI/Abdominal Exam: Normal Bowel Sounds, Soft, No Distention Extremities: No Pedal Edema. No: Increased Warmth Skin: Warm, Dry Psy/Mental Status: Alert, Normal Affect - Problem List & Annotations (1) Acute bronchitis SNOMED Code(s): 26739048 Code(s): J20.9 - ACUTE BRONCHITIS, UNSPECIFIED Status: Acute Current Visit: Yes Qualifiers: Bronchitis organism: unspecified organism Qualified Code(s): J20.9 - Acute bronchitis, unspecified (2) Sepsis SNOMED Code(s): 64414890 Code(s): A41.9 - SEPSIS, UNSPECIFIED ORGANISM Status: Acute Current Visit : Yes Qualifiers: Sepsis type: sepsis due to unspecified organism Qualified Code(s): A41.9 - Sepsis, unspecified organism (3) Acute kidney injury SNOMED Code(s): 46708646 Code(s): N17.9 - ACUTE KIDNEY FAILURE, UNSPECIFIED Status: Acute Current Visit: Yes (4) Crohns disease SNOMED Code(s): 15123363 Code(s): K50.90 - CROHN'S DISEASE, UNSPECIFIED, WITHOUT COMPLICATIONS Status: Chronic Current Visit: Yes Qualifiers: Gastrointestinal tract location: small intestine Digestive disease complication type: other complication Qualified Code(s): K50.018 - Crohn's disease of small intestine with other complication (5) Tobacco dependence SNOMED Code(s): 59372654 Code(s): F17.200 - NICOTINE DEPENDENCE, UNSPECIFIED, UNCOMPLICATED Status: Chronic Current Visit: Yes - Problem List Review Problem List Initiated/Reviewed/Updated: Yes - My Orders Last 24 Hours: My Active Orders 10/06/18 12:09 Resuscitation Status Routine 10/06/18 12:54 Patient Status [ADT] Routine Antiembolic Devices [RC] .Routine Intake and Output [RC] QSHIFT Notify Provider Vital Signs [RC] ASDIRECTED Oxygen Therapy [RC] PRN RT Aerosol Therapy [RC] ASDIRECTED Up With Assistance [RC] ASDIRECTED VTE/DVT Education [RC] Per Unit Routine Vital Signs [RC] Q4H Acetaminophen [Tylenol] 650 mg PO Q4H PRN Albuterol [Proventil Neb Soln] 2.5 mg NEB Q4H PRN Benzonatate [Tessalon Perles] 100 mg PO TID PRN Loperamide [Imodium] 2 mg PO Q6H PRN Metoclopramide [Reglan] 10 mg PO Q6HR PRN Ondansetron [Zofran ODT] 4 mg PO Q6H PRN Ondansetron [Zofran] 4 mg IV Q6H PRN Sodium Chloride 0.9% [Normal Saline] 1,000 ml IV ASDIRECTED Pressure Reduction Mattress [OM.PC] Routine Sequential Compression Device [OM.PC] Per Unit Routine 10/06/18 13:08 Phenazopyridine [Urinary Pain Relief] 190 mg PO TID PRN diazePAM [Valium] 15 mg PO BEDTIME PRN 10/06/18 13:15 Nicotine [Habitrol] 14 mg TRDERM DAILY 10/06/18 17:23 CULTURE RESPIRATORY + SMEAR [RM] Routine 10/06/18 21:00 ALPRAZolam [Xanax] 0.5 mg PO BEDTIME Melatonin 12 mg PO BEDTIME diphenhydrAMINE [Benadryl] 25 mg PO BEDTIME 10/06/18 Dinner Regular Diet [DIET] 10/07/18 07:30 Levothyroxine [Synthroid] 88 mcg PO ACBREAKFAST Pantoprazole [ProTONIX] 40 mg PO ACBREAKFAST 10/07/18 08:56 Acetaminophen/HYDROcodone [[place] 325-10 MG] 1 tab PO Q4H PRN 10/07/18 09:00 Methscopolamine [place] [Pamine] 0 mg PO BID 10/07/18 09:27 Discontinue Telemetry Monitoring [Cardiac Monitoring Discontinue] [RC] Click to Edit Convert IV to Saline Lock [OM.PC] Routine 10/07/18 09:30 Oseltamivir [Tamiflu] 30 mg PO BID 10/08/18 05:00 BASIC METABOLIC PANEL,BMP [CHEM] Timed CBC W/O DIFF,HEMOGRAM [HEME] Timed (1) 10/08/18 09:00 predniSONE 20 mg PO DAILY 10/08/18 09:30 predniSONE 15 mg PO ONETIME ONE 10/08/18 12:00 Levofloxacin [Levaquin] 750 mg PO Q48H - Plan Plan:: ASSESSMENT AND PLAN - Acute bronchitis - could be bacterial but still very suspicious for influenza based on symptoms. Clinically improving and sepsis has resolved. -Continue levofloxacin -saline lock IV -Hold antihypertensive medication -Empiric treatment for influenza -Cardiac monitoring Acute kidney injury - Likely secondary to intravascular volume depletion with poor intake and sepsis. level has improved with hydration. -encourage by mouth intake -Repeat labs in the morning Crohn's disease - Chronic and stable at this time. Maintenance issues - - DVT prophylaxis - mechanical - GI prophylaxis - PPI - Nutrition - regular diet as tolerated Disposition - I would anticipate discharge home after the hospital stay Sukhdeep Curtis M.D.
[2018-10-07] MEDS: Acetaminophen/HYDROcodone 325-10 MG Tab PO PRN (09:50)
[2018-10-07] MEDS: Oseltamivir 30 MG Cap PO SCH ×2 (10:26→21:43)
[2018-10-07] MEDS ORDERED: predniSONE 5 MG Tab PO ONE (12:00)
[2018-10-07] MEDS: Diazepam 5 MG Tab PO PRN (21:42)
[2018-10-07] MEDS: ALPRAZolam 0.5 MG Tab PO SCH (21:42)
[2018-10-07] MEDS: Melatonin 3 MG Tab PO SCH (21:43)
[2018-10-07] MEDS: diphenhydrAMINE 25 MG Cap PO SCH (21:43)
[2018-10-07] MEDS ORDERED: Oxymetazoline 0.05% Nasal Spray 15 ML Bottle NAS PRN (22:13)
[2018-10-08] MEDS: Acetaminophen/HYDROcodone 325-10 MG Tab PO PRN ×4 (00:48→20:50)
[2018-10-08] MEDS: Pantoprazole 40 MG Tab.CR PO SCH (08:52)
[2018-10-08] MEDS: Levothyroxine 88 MCG Tab PO SCH (08:53)
[2018-10-08] MEDS: METHSCOPOLAMINE PO SCH ×2 (08:54→20:52)
[2018-10-08] MEDS: Nicotine 14 MG/24 Hr Patch TRDERM SCH (08:54)
[2018-10-08] MEDS: predniSONE 20 MG Tab PO SCH (08:54)
[2018-10-08] MEDS: Oseltamivir 30 MG Cap PO SCH ×2 (08:55→20:52)
[2018-10-08] MEDS ORDERED: guaiFENesin/Dextromethorphan 100-10 MG/5 ML Soln 10 ML Cup PO PRN (10:53)
--- NOTE | 2018-10-08 10:54 | PCM.PN ---
- General Info Date of Service: 10/08/18 Subjective Update: There were no acute events overnight. Patient did not sleep well but otherwise feels okay. Cough has been more productive. Shortness of breath is a little better. Appetite slightly better. He has not had any fevers. Sputum culture has been negative so far. No change in bowel function from baseline. Functional Status: Reports: Pain Controlled, Tolerating Diet - Review of Systems General: Reports: Weakness Pulmonary: Reports: Shortness of Breath, Cough - Patient Data Vitals - Most Recent: Last Vital Signs Temp 36.6 C 10/08/18 07:00 Pulse 86 10/08/18 07:00 Resp 18 10/08/18 07:00 BP 146/99 H 10/08/18 07:00 Pulse Ox 97 10/08/18 07:00 Weight - Most Recent: 55 kg I&O - Last 24 Hours: Intake & Output 10/07/18 10/08/18 10/08/18 22:59 06:59 14:59 Intake Total 600 240 Output Total 150 100 150 Balance 450 140 -150 Lab Results Last 24 Hours: Laboratory Results - last 24 hr 10/08/18 10/08/18 Range/Units 05:46 05:46 WBC 5.2 (4.5-11.0) K/uL RBC 3.87 L (4.30-5.90) M/uL Hgb 12.8 (12.0-15.0) g/dL Hct 39.2 L (40.0-54.0) % MCV 101 H (80-98) fL MCH 33 H (27-31) pg MCHC 33 (32-36) % Plt Count 99 L (150-400) K/uL Sodium 139 L (140-148) mmol/L Potassium 3.8 (3.6-5.2) mmol/L Chloride 109 H (100-108) mmol/L Carbon Dioxide 20 L (21-32) mmol/L Anion Gap 13.8 (5.0-14.0) mmol/L BUN 15 (7-18) mg/dL Creatinine 1.2 (0.8-1.3) mg/dL Est Cr Clr Drug Dosing 46.47 mL/min Estimated GFR (MDRD) > 60 (>60) Glucose 95 (74-106) mg/dL Calcium 8.0 L (8.5-10.1) mg/dL Oscar Results Last 24 Hours: Microbiology 10/06/18 10:15 Aerobic Blood Culture - Preliminary Blood - Arm, Right NO GROWTH AFTER 2 DAYS Anaerobic Blood Culture - Preliminary NO GROWTH AFTER 2 DAYS 10/06/18 10:10 Aerobic Blood Culture - Preliminary Blood - Venous - Iv Start NO GROWTH AFTER 2 DAYS Anaerobic Blood Culture - Preliminary NO GROWTH AFTER 2 DAYS 10/06/18 17:23 Gram Stain - Final Sputum - Expectorated Respiratory Culture - Preliminary NORMAL RESPIRATORY GELACIO 1 DAY 10/06/18 10:29 Quick Strep Confirmation Culture - Final Throat NO GROUP A STREP ISOLATED Group A Streptococcus Rapid Screen - Final NEGATIVE STREP A SCREEN Med Orders - Current: Current Medications Acetaminophen (Tylenol) 650 mg PO Q4H PRN PRN Reason: Fever Hydrocodone Bitart/Acetaminophen ([place] 325-10 Mg) 1 tab PO Q4H PRN PRN Reason: Pain (moderate 4-6) Last Admin: 10/08/18 08:57 Dose: 1 tab Albuterol (Proventil Neb Soln) 2.5 mg NEB Q4H PRN PRN Reason: Shortness Of Breath/wheezing Alprazolam (Xanax) 0.5 mg PO BEDTIME [facility] Last Admin: 10/07/18 21:42 Dose: 0.5 mg Benzonatate (Tessalon Perles) 100 mg PO TID PRN PRN Reason: Cough Diazepam (Valium.) 15 mg PO BEDTIME PRN PRN Reason: SLEEP Last Admin: 10/07/18 21:42 Dose: 15 mg Diphenhydramine HCl (Benadryl) 25 mg PO BEDTIME [facility] Last Admin: 10/07/18 21:43 Dose: 25 mg Levofloxacin 250 mg/ (Levofloxacin 500 mg) 750 mg PO Q48H [facility] Levothyroxine Sodium (Synthroid) 88 mcg PO ACBREAKFAST [facility] Last Admin: 10/08/18 08:53 Dose: 88 mcg Loperamide HCl (Imodium) 2 mg PO Q6H PRN PRN Reason: Diarrhea Last Admin: 10/07/18 10:31 Dose: 2 mg Melatonin (Melatonin) 12 mg PO BEDTIME [facility] Last Admin: 10/07/18 21:43 Dose: 12 mg Metoclopramide HCl (Reglan) 10 mg PO Q6HR PRN PRN Reason: Nausea Nicotine (Habitrol) 14 mg TRDERM DAILY [facility] Last Admin: 10/08/18 08:54 Dose: 14 mg Methscopolamine 2.5 (Mg (Ptom)) 0 mg PO BID [facility] Last Admin: 10/08/18 08:54 Dose: 2.5 mg Ondansetron HCl (Zofran Odt) 4 mg PO Q6H PRN PRN Reason: Nausea able to take PO Ondansetron HCl (Zofran) 4 mg IV Q6H PRN PRN Reason: Nausea/Vomiting Oseltamivir Phosphate (Tamiflu) 30 mg PO BID [facility] Last Admin: 10/08/18 08:55 Dose: 30 mg Oxymetazoline HCl (Afrin Original 0.05% Nasal Mobile) 2 ml LAST BID PRN PRN Reason: Congestion Last Admin: 10/07/18 22:32 Dose: 1 spray Pantoprazole Sodium (Protonix) 40 mg PO ACBREAKFAST [facility] Last Admin: 10/08/18 08:52 Dose: 40 mg Phenazopyridine HCl (Urinary Pain Relief) 190 mg PO TID PRN PRN Reason: PAIN Prednisone (Prednisone) 20 mg PO DAILY@0800 [facility] Last Admin: 10/08/18 08:54 Dose: 20 mg Discontinued Medications Hydrocodone Bitart/Acetaminophen ([place] 325-10 Mg) 1 tab PO ONETIME ONE Stop: 10/06/18 12:05 Last Admin: 10/06/18 12:53 Dose: Not Given Albuterol (Proventil Neb Soln) 2.5 mg NEB ONETIME ONE Stop: 10/06/18 10:20 Last Admin: 10/06/18 10:30 Dose: 2.5 mg Hydrocortisone Sodium Succinate (Solu-Cortef) 100 mg IVPUSH ONETIME ONE Stop: 10/06/18 17:31 Last Admin: 10/06/18 17:17 Dose: 100 mg Sodium Chloride (Normal Saline) 1,000 mls @ 999 mls/hr IV ASDIRECTED [facility] Last Admin: 10/06/18 10:20 Dose: 999 mls/hr Sodium Chloride (Normal Saline) 1,000 mls @ 999 mls/hr IV ASDIRECTED [facility] Last Admin: 10/06/18 11:09 Dose: 999 mls/hr Levofloxacin/Dextrose 750 mg/ (Premix) 150 mls @ 100 mls/hr IV ONETIME ONE Stop: 10/06/18 12:31 Last Admin: 10/06/18 11:10 Dose: 100 mls/hr Sodium Chloride (Normal Saline) 1,000 mls @ 125 mls/hr IV ASDIRECTED [facility] Last Admin: 10/07/18 08:05 Dose: 125 mls/hr Sodium Chloride (Normal Saline) 1,000 mls @ 999 mls/hr IV ASDIRECTED [facility] Stop: 10/06/18 16:16 Last Admin: 10/06/18 15:13 Dose: 999 mls/hr Oseltamivir Phosphate (Tamiflu) 30 mg PO ONETIME ONE Stop: 10/06/18 12:55 Last Admin: 10/06/18 13:47 Dose: 30 mg Prednisone (Prednisone) 5 mg PO DAILY [facility] Last Admin: 10/07/18 08:07 Dose: 5 mg Prednisone (Prednisone) 15 mg PO ONETIME ONE Stop: 10/07/18 12:01 Last Admin: 10/07/18 12:30 Dose: 15 mg - Exam Quality Assessment: No: Supplemental Oxygen General: Alert, Oriented, Cooperative, No Acute Distress Lungs: Normal Respiratory Effort, Wheezing (mild exp wheezing throughout) Cardiovascular: Regular Rate, Regular Rhythm GI/Abdominal Exam: Normal Bowel Sounds, Soft, No Distention Extremities: No Pedal Edema. No: Increased Warmth Skin: Warm, Dry Psy/Mental Status: Alert, Normal Affect - Problem List & Annotations (1) Acute bronchitis SNOMED Code(s): 71924206 Code(s): J20.9 - ACUTE BRONCHITIS, UNSPECIFIED Status: Acute Current Visit: Yes Qualifiers: Bronchitis organism: unspecified organism Qualified Code(s): J20.9 - Acute bronchitis, unspecified (2) Sepsis SNOMED Code(s): 12675732 Code(s): A41.9 - SEPSIS, UNSPECIFIED ORGANISM Status: Acute Current Visit : Yes Qualifiers: Sepsis type: sepsis due to unspecified organism Qualified Code(s): A41.9 - Sepsis, unspecified organism (3) Acute kidney injury SNOMED Code(s): 98167360 Code(s): N17.9 - ACUTE KIDNEY FAILURE, UNSPECIFIED Status: Acute Current Visit: Yes (4) Crohns disease SNOMED Code(s): 48158390 Code(s): K50.90 - CROHN'S DISEASE, UNSPECIFIED, WITHOUT COMPLICATIONS Status: Chronic Current Visit: Yes Qualifiers: Gastrointestinal tract location: small intestine Digestive disease complication type: other complication Qualified Code(s): K50.018 - Crohn's disease of small intestine with other complication (5) Tobacco dependence SNOMED Code(s): 81251644 Code(s): F17.200 - NICOTINE DEPENDENCE, UNSPECIFIED, UNCOMPLICATED Status: Chronic Current Visit: Yes - Problem List Review Problem List Initiated/Reviewed/Updated: Yes - My Orders Last 24 Hours: My Active Orders 10/07/18 11:55 PT Evaluation and Treatment [CONS] Routine 10/08/18 08:00 predniSONE 20 mg PO DAILY@0800 10/08/18 10:53 Dextromethorphan/guaiFENesin [Robitussin DM] 10 ml PO Q4H PRN 10/08/18 12:00 Levofloxacin [Levaquin] 750 mg PO Q48H - Plan Plan:: ASSESSMENT AND PLAN - Acute bronchitis - could be bacterial but still very suspicious for influenza based on symptoms. Clinically improving but still weak. Respiratory status slowly improving but still has some wheezing today. -Continue levofloxacin -Prednisone 20 mg daily 3 days -saline lock IV -Hold antihypertensive medication -Empiric treatment for influenza -Cardiac monitoring -Continue physical therapy Acute kidney injury - Likely secondary to intravascular volume depletion with poor intake and sepsis. Kidney function nearly back to baseline. -encourage by mouth intake Crohn's disease - Chronic and stable at this time. Maintenance issues - - DVT prophylaxis - mechanical - GI prophylaxis - PPI - Nutrition - regular diet as tolerated Disposition - I would anticipate discharge home after the hospital stay, likely tomorrow if stable overnight Sukhdeep Curtis M.D.
[2018-10-08] MEDS ORDERED: Levofloxacin 250 MG Tab PO SCH (12:00)
[2018-10-08] MEDS ORDERED: Levofloxacin 500 MG Tab PO SCH (12:00)
[2018-10-08] MEDS: ALPRAZolam 0.5 MG Tab PO SCH (20:50)
[2018-10-08] MEDS: diphenhydrAMINE 25 MG Cap PO SCH (20:51)
[2018-10-08] MEDS: Melatonin 3 MG Tab PO SCH (20:51)
[2018-10-09] MEDS: Pantoprazole 40 MG Tab.CR PO SCH (08:40)
[2018-10-09] MEDS: predniSONE 20 MG Tab PO SCH (08:41)
[2018-10-09] MEDS: Levothyroxine 88 MCG Tab PO SCH (08:41)
[2018-10-09] MEDS: Nicotine 14 MG/24 Hr Patch TRDERM SCH (08:42)
[2018-10-09] MEDS: METHSCOPOLAMINE PO SCH (08:43)
[2018-10-09] MEDS: Oseltamivir 30 MG Cap PO SCH (08:44)
[2018-10-09] MEDS: Acetaminophen/HYDROcodone 325-10 MG Tab PO PRN ×2 (08:49→12:29)
[2018-10-09 09:23] VITALS: BP 150/92
--- NOTE | 2018-10-09 10:38 | PCM.DCSUM1 ---
Discharge Summary - Hospital Course Brief History: 68-year-old male with history of Crohn's disease and tobacco dependence who presented with fever, shortness of breath, weakness and confusion. He was admitted for management of sepsis secondary to bronchitis complicated by acute kidney injury. Diagnosis: Stroke: No - Discharge Data Discharge Date: 10/09/18 Discharge Disposition: Home, [place] [address] Condition: Good - Discharge Diagnosis/Problem(s) (1) Acute bronchitis SNOMED Code(s): 80676673 ICD Code: J20.9 - ACUTE BRONCHITIS, UNSPECIFIED Status: Acute Current Visit: Yes Qualifiers: Bronchitis organism: unspecified organism Qualified Code(s): J20.9 - Acute bronchitis, unspecified (2) Sepsis SNOMED Code(s): 55849456 ICD Code: A41.9 - SEPSIS, UNSPECIFIED ORGANISM Status: Acute Current Visit: Yes Qualifiers: Sepsis type: sepsis due to unspecified organism Qualified Code(s): A41.9 - Sepsis, unspecified organism (3) Acute kidney injury SNOMED Code(s): 25312716 ICD Code: N17.9 - ACUTE KIDNEY FAILURE, UNSPECIFIED Status: Acute Current Visit: Yes (4) Crohns disease SNOMED Code(s): 80405447 ICD Code: K50.90 - CROHN'S DISEASE, UNSPECIFIED, WITHOUT COMPLICATIONS Status: Chronic Current Visit: Yes Qualifiers: Gastrointestinal tract location: small intestine Digestive disease complication type: other complication Qualified Code(s): K50.018 - Crohn's disease of small intestine with other complication (5) Tobacco dependence SNOMED Code(s): 09509474 ICD Code: F17.200 - NICOTINE DEPENDENCE, UNSPECIFIED, UNCOMPLICATED Status : Chronic Current Visit: Yes - Patient Summary/Data Consults: Consultations 10/07/18 11:55 PT Evaluation and Treatment [CONS] Routine Please Evaluate and Treat. PT Reason for Consult: Strengthening This query below is only for informational purposes and is not editable. Admission Diagnosis/Problem: Acute bronchitis Hospital Course: Tien presented to the emergency room with weakness and confusion as well as cough and shortness of breath. Workup in the emergency room revealed evidence for sepsis area bronchitis with the suspected source of infection. His history was somewhat convincing for influenza but the influenza testing was negative. Chest x-ray was clear. Laboratory testing also revealed acute kidney injury with a creatinine of 2.4. He received aggressive fluid boluses as well as levofloxacin and Tamiflu and was admitted to the hospital for further management. Initially he went to the intensive care unit with his persistent hypotension. His blood pressure did improve after several boluses as well as a dose of hydrocortisone. Once his blood pressure normalized he started to make slow but steady improvement with his respiratory status. Initially he was not wheezing but by the morning after admission he has started to wheeze. We did increase his prednisone from 5 mg a day up to 20 mg day. We continued the levofloxacin as well as the empiric Tamiflu. Over the next 24 hours he made additional clinical improvement. He has never been hypoxic during the hospital stay. Shortness of breath has been improving. His cough has increased some but I suspect this is due to improvement. He has not had any fever since admission. White blood cell count has remained normal. Strength and appetite have steadily improved throughout the hospital stay. Cultures have all been negative. Wheezing has resolved on the day of discharge. I believe he is safe for discharge home at this time. Will complete a total of 7 days of antibiotic therapy with levofloxacin. He has 2 more doses remaining with him being given every 48 hours. I'm going to stop the Tamiflu at the time of discharge as he is completed more than 3 days of his 5. His his at home to help. He was interested in home care at the time of discharge. - Patient Instructions Diet: Usual Diet as Tolerated Activity: As Tolerated Showering/Bathing: May Shower Notify Provider of: Fever, Increased Pain, Nausea and/or Vomiting Other/Special Instructions: 1. You were in the hospital for management of acute bronchitis with sepsis. We did not determine a causative agent but I do suspect this was possibly an influenza infection. I cannot rule out a bacterial infection at this time. I do recommend 2 additional doses of antibiotic therapy. Please take levofloxacin 750 mg on Wednesday at noon and Wednesday at noon. This will complete your treatment for bacterial bronchitis. If you have difficulty with cough you can use the [id number] cough syrup with the expectorant. The cough may stick around for several days or possibly even up to a couple weeks. 2. Restart your blood pressure medication tonight and continue your other home medications as previously prescribed. 3. Follow up as as scheduled next week. 4. Seek medical attention if if fever greater than 101, severe abdominal pain, or persistent vomiting. - Discharge Plan *PRESCRIPTION DRUG MONITORING PROGRAM REVIEWED*: Not Applicable *COPY OF PRESCRIPTION DRUG MONITORING REPORT IN PATIENT ALEA: Not Applicable Prescriptions/Med Rec: Levofloxacin 750 mg PO Q48H #2 tablet Home Medications: Home Meds Cholecalciferol (Vitamin D3) [Vitamin D3] 2,000 unit PO DAILY 07/24/13 [History] Methscopolamine [place] [Pamine] 2.5 mg PO BID 07/24/13 [History] Minocycline HCl 50 mg PO DAILY 07/24/13 [History] Phenazopyridine [Pyridium] 200 mg PO TID PRN 07/24/13 [History] diazePAM [Valium] 15 mg PO BEDTIME 07/24/13 [History] Levothyroxine Sodium [Tirosint] 88 mcg PO DAILY 02/18/14 [History] Pantoprazole [ProTONIX] 40 mg PO ACBREAKFAST 10/01/15 [History] Albuterol/Ipratropium [Combivent Respimat] 1 puff IH Q4H PRN 09/10/16 [History] Hydrocodone/Acetaminophen [Hydrocodon-Acetaminophn 10-300] 1 tab PO Q6H [History] Potassium Chloride 40 meq PO DAILY 09/10/16 [History] predniSONE [Deltasone] 5 mg PO DAILY 09/10/16 [History] Losartan [Cozaar] 12.5 mg PO DAILY 09/29/16 [History] Metoclopramide HCl [Reglan] 10 mg PO Q6HR PRN #30 tablet 10/05/16 [Rx] Loperamide [Imodium] 2 mg PO Q6H PRN 10/06/18 [History] Levofloxacin 750 mg PO Q48H #2 tablet 10/09/18 [Rx] Oxygen Therapy Mode: Room Air Patient Handouts: Acute Bronchitis, Adult, [id number], Levofloxacin tablets Referrals: Ashley Fink NP [Ordering Only Provider] - 10/17/18 1:30 pm - Discharge Summary/Plan Comment DC Time >30 min.: No - Patient Data Vitals - Most Recent: Last Vital Signs Temp 36.1 C 10/09/18 09:19 Pulse 88 10/09/18 09:19 Resp 16 10/09/18 09:19 BP 150/92 H 10/09/18 09:19 Pulse Ox 97 10/09/18 09:19 Weight - Most Recent: 55 kg I&O - Last 24 hours: Intake & Output 10/08/18 10/09/18 10/09/18 22:59 06:59 14:59 Intake Total 510 Output Total 150 375 200 Balance 360 -375 -200 LELAND Results - Last 24 hrs: Microbiology 10/06/18 10:10 Aerobic Blood Culture - Preliminary Blood - Venous - Iv Start NO GROWTH AFTER 3 DAYS Anaerobic Blood Culture - Preliminary NO GROWTH AFTER 3 DAYS 10/06/18 10:15 Aerobic Blood Culture - Preliminary Blood - Arm, Right NO GROWTH AFTER 3 DAYS Anaerobic Blood Culture - Preliminary NO GROWTH AFTER 3 DAYS 10/06/18 17:23 Gram Stain - Final Sputum - Expectorated Respiratory Culture - Final NORMAL RESPIRATORY GELACIO 2 DAYS 10/06/18 10:29 Quick Strep Confirmation Culture - Final Throat NO GROUP A STREP ISOLATED Group A Streptococcus Rapid Screen - Final NEGATIVE STREP A SCREEN Med Orders - Current: Current Medications Acetaminophen (Tylenol) 650 mg PO Q4H PRN PRN Reason: Fever Hydrocodone Bitart/Acetaminophen ([place] 325-10 Mg) 1 tab PO Q4H PRN PRN Reason: Pain (moderate 4-6) Last Admin: 10/09/18 08:49 Dose: 1 tab Albuterol (Proventil Neb Soln) 2.5 mg NEB Q4H PRN PRN Reason: Shortness Of Breath/wheezing Alprazolam (Xanax) 0.5 mg PO BEDTIME GREGORY Last Admin: 10/08/18 20:50 Dose: 0.5 mg Benzonatate (Tessalon Perles) 100 mg PO TID PRN PRN Reason: Cough Diazepam (Valium.) 15 mg PO BEDTIME PRN PRN Reason: SLEEP Last Admin: 10/07/18 21:42 Dose: 15 mg Diphenhydramine HCl (Benadryl) 25 mg PO BEDTIME GREGORY Last Admin: 10/08/18 20:51 Dose: 25 mg Guaifenesin/Dextromethorphan (Robitussin Dm) 10 ml PO Q4H PRN PRN Reason: Cough Last Admin: 10/08/18 20:53 Dose: 10 ml Levofloxacin 250 mg/ (Levofloxacin 500 mg) 750 mg PO Q48H GREGORY Last Admin: 10/08/18 12:39 Dose: 750 mg Levothyroxine Sodium (Synthroid) 88 mcg PO ACBREAKFAST [facility] Last Admin: 10/09/18 08:41 Dose: 88 mcg Loperamide HCl (Imodium) 2 mg PO Q6H PRN PRN Reason: Diarrhea Last Admin: 10/07/18 10:31 Dose: 2 mg Melatonin (Melatonin) 12 mg PO BEDTIME [facility] Last Admin: 10/08/18 20:51 Dose: 12 mg Metoclopramide HCl (Reglan) 10 mg PO Q6HR PRN PRN Reason: Nausea Nicotine (Habitrol) 14 mg TRDERM DAILY [facility] Last Admin: 10/09/18 08:42 Dose: 14 mg Methscopolamine 2.5 (Mg (Ptom)) 0 mg PO BID [facility] Last Admin: 10/09/18 08:43 Dose: 2.5 mg Ondansetron HCl (Zofran Odt) 4 mg PO Q6H PRN PRN Reason: Nausea able to take PO Ondansetron HCl (Zofran) 4 mg IV Q6H PRN PRN Reason: Nausea/Vomiting Oseltamivir Phosphate (Tamiflu) 30 mg PO BID [facility] Last Admin: 10/09/18 08:44 Dose: 30 mg Oxymetazoline HCl (Afrin Original 0.05% Nasal Trout) 2 ml LAST BID PRN PRN Reason: Congestion Last Admin: 10/07/18 22:32 Dose: 1 spray Pantoprazole Sodium (Protonix) 40 mg PO ACBREAKFAST [facility] Last Admin: 10/09/18 08:40 Dose: 40 mg Phenazopyridine HCl (Urinary Pain Relief) 190 mg PO TID PRN PRN Reason: PAIN Prednisone (Prednisone) 20 mg PO DAILY@0800 [facility] Last Admin: 10/09/18 08:41 Dose: 20 mg Discontinued Medications Hydrocodone Bitart/Acetaminophen ([place] 325-10 Mg) 1 tab PO ONETIME ONE Stop: 10/06/18 12:05 Last Admin: 10/06/18 12:53 Dose: Not Given Albuterol (Proventil Neb Soln) 2.5 mg NEB ONETIME ONE Stop: 10/06/18 10:20 Last Admin: 10/06/18 10:30 Dose: 2.5 mg Hydrocortisone Sodium Succinate (Solu-Cortef) 100 mg IVPUSH ONETIME ONE Stop: 10/06/18 17:31 Last Admin: 10/06/18 17:17 Dose: 100 mg Sodium Chloride (Normal Saline) 1,000 mls @ 999 mls/hr IV ASDIRECTED [facility] Last Admin: 10/06/18 10:20 Dose: 999 mls/hr Sodium Chloride (Normal Saline) 1,000 mls @ 999 mls/hr IV ASDIRECTED [facility] Last Admin: 10/06/18 11:09 Dose: 999 mls/hr Levofloxacin/Dextrose 750 mg/ (Premix) 150 mls @ 100 mls/hr IV ONETIME ONE Stop: 10/06/18 12:31 Last Admin: 10/06/18 11:10 Dose: 100 mls/hr Sodium Chloride (Normal Saline) 1,000 mls @ 125 mls/hr IV ASDIRECTED [facility] Last Admin: 10/07/18 08:05 Dose: 125 mls/hr Sodium Chloride (Normal Saline) 1,000 mls @ 999 mls/hr IV ASDIRECTED [facility] Stop: 10/06/18 16:16 Last Admin: 10/06/18 15:13 Dose: 999 mls/hr Oseltamivir Phosphate (Tamiflu) 30 mg PO ONETIME ONE Stop: 10/06/18 12:55 Last Admin: 10/06/18 13:47 Dose: 30 mg Prednisone (Prednisone) 5 mg PO DAILY [facility] Last Admin: 10/07/18 08:07 Dose: 5 mg Prednisone (Prednisone) 15 mg PO ONETIME ONE Stop: 10/07/18 12:01 Last Admin: 10/07/18 12:30 Dose: 15 mg - Exam Quality Assessment: Denies: Supplemental Oxygen General: Reports: Alert, Oriented, Cooperative, No Acute Distress Lungs: Reports: Clear to Auscultation, Normal Respiratory Effort Cardiovascular: Reports: Regular Rate, Regular Rhythm GI/Abdominal Exam: Soft, No Distention Extremities: No Pedal Edema Psy/Mental Status: Reports: Alert, Normal Affect
== END 2018-10-09 12:45 | disposition home health service (06) | DRG 872 ==
LOC: JP.ED 09:44 → JP.ICU 12:04 → JP.2SS 10-08 13:36
PROVIDERS: ADMIT Internal Medicine; ATTEND Internal Medicine
DX: A41.9 Sepsis, unspecified organism (principal); J44.0 Chronic obstructive pulmonary disease with (acute) lower respiratory infection; N17.9 Acute kidney failure, unspecified; J44.9 Chronic obstructive pulmonary disease, unspecified; K50.018 Crohn's disease of small intestine with other complication; E87.2 Acidosis; J20.9 Acute bronchitis, unspecified; Z66 Do not resuscitate; F17.210 Nicotine dependence, cigarettes, uncomplicated; R65.20 Severe sepsis without septic shock; I10 Essential (primary) hypertension; R53.1 Weakness; R09.89 Other specified symptoms and signs involving the circulatory and respiratory systems; R05 Cough; E03.9 Hypothyroidism, unspecified; I95.9 Hypotension, unspecified; J30.9 Allergic rhinitis, unspecified; K21.9 Gastro-esophageal reflux disease without esophagitis; E61.1 Iron deficiency; E53.8 Deficiency of other specified B group vitamins; F32.9 Major depressive disorder, single episode, unspecified; F41.9 Anxiety disorder, unspecified; M54.9 Dorsalgia, unspecified; G89.29 Other chronic pain; M19.90 Unspecified osteoarthritis, unspecified site; H54.7 Unspecified visual loss; Z87.442 Personal history of urinary calculi; Z90.49 Acquired absence of other specified parts of digestive tract; Z79.52 Long term (current) use of systemic steroids; Z88.5 Allergy status to narcotic agent; Z91.013 Allergy to seafood; Z88.2 Allergy status to sulfonamides; Z88.8 Allergy status to other drugs, medicaments and biological substances
CPT/HCPCS: 36415; 71045; 80048; 80053; 81001; 83605; 85025; 85027; 86140; 87040; 87070; 87081; 87205; 87430; 87804; 87804-59; 93005; 94640; 94644; 94667; 96361; 96365; 97110-GP; 97162-GP; 97530-GP; 97535-GP; 99285; 99285-25; A9270-GY; J1720; J1956; J7030

== ENCOUNTER 2019-12-11 09:12 | Day surgery (SDC) | payer MEDICARE ==
[~2019-12-11 09:12] MED LIST changes: -Meropenem 500 MG SDV ONE; +Midazolam 1 MG/ML 2 ML SDV ONE; +Propofol 200 MG/20 ML SDV ONE; +fentaNYL 100 MCG/2 ML SDV ONE
[2019-12-11] MEDS ORDERED: Dextrose 5%-Lactated Ringers 1,000 ML IV SCH (09:30)
[2019-12-11 12:49] VITALS: BP 136/90; PULSE 61
--- NOTE | 2019-12-21 08:18 | OR ---
DATE OF PROCEDURE: 12/11/2019 SURGEON: Elkin Arias MD PREOPERATIVE DIAGNOSIS: History of Crohn's disease. POSTOPERATIVE DIAGNOSES: 1. History of Crohn's disease with no gross mucosal inflammation within the colon or distal small bowel. 2. A single 8 mm polyp of mid-sigmoid colon (30 cm from dentate line). 3. Uncomplicated left colonic diverticulosis. OPERATIVE PROCEDURE: Flexible colonoscopy with polypectomy by snare technique ([id number]). ANESTHESIA: IV sedation. INDICATION FOR PROCEDURE: A 69-year-old male with history of Crohn's disease, presenting for a screening colonoscopy. The plan is to proceed with a colonoscopy with biopsies and/or polypectomy as indicated. Potential risks including bleeding and perforation were discussed, and the patient wishes to proceed. DETAILS OF PROCEDURE: The patient was taken to the operating room and placed in a left lateral decubitus position. IV sedation was administered, after which the initial digital rectal exam was performed and was unremarkable. Colonoscope was then passed into the rectum with retroflexion revealing uncomplicated hemorrhoidal columns. The scope was then eventually passed to the area of the ileocolic anastomosis with the patient having previous right colon resection. The scope was then passed roughly 10 cm further into the small bowel. Overall, there was no gross inflammation in the colon or visualized portion of the small bowel, i.e., no suggestion of ongoing Crohn's disease. There was a single 8 mm polyp noted at 30 cm from the dentate line and some uncomplicated colonic diverticulosis on the left side. Using standard technique, 8 mm polyp was then excised and retrieved through the suction device and sent for histologic evaluation. Good hemostasis at the polypectomy site was confirmed and the procedure then concluded. Assuming that the present polyp is adenomatous in nature, his next followup colonoscopy should be in the range of 2 to 3 years. Elkin Arias MD /[id number]
== END 2019-12-11 11:45 | disposition home or self-care (01) ==
LOC: JP.SDS 09:12
PROVIDERS: ATTEND Surgery
DX: Z12.11 Encounter for screening for malignant neoplasm of colon (principal); D12.5 Benign neoplasm of sigmoid colon; K57.30 Diverticulosis of large intestine without perforation or abscess without bleeding; J44.9 Chronic obstructive pulmonary disease, unspecified; I12.9 Hypertensive chronic kidney disease with stage 1 through stage 4 chronic kidney disease, or unspecified chronic kidney disease; K21.9 Gastro-esophageal reflux disease without esophagitis; N18.9 Chronic kidney disease, unspecified; Z87.19 Personal history of other diseases of the digestive system
CPT/HCPCS: 45385; 88305; J2250; J2704; J3010; J7121

== ENCOUNTER 2020-11-08 16:50 | Emergency (ER) | payer MEDICARE ==
--- NOTE | 2020-11-08 18:01 | EDM.PDOC ---
ED HPI GENERAL MEDICAL PROBLEM - General Chief Complaint: Neuro Symptoms/Deficits Stated Complaint: BALANCE IS OFF Time Seen by Provider: 11/08/20 17:20 Source of Information: Reports: Patient, Family History Limitations: Reports: No Limitations - History of Present Illness INITIAL COMMENTS - FREE TEXT/NARRATIVE: 70-year-old male with a long history of Crohn's disease, woke up this morning at 11 AM with a very strong pulling sensation to the right. He got up to go to the bathroom, and felt like something pulled him back into bed. He then struggled to get into the bathroom holding onto the wall and furniture, and even had to spend some time on the floor. He then went back to bed for 1/2-hour, when he woke up he did not feel much better. He thought he had a pinched nerve in his neck so gave it some time but now at 6 hours later he still feels a pulling sensation to the right. He does not have vertigo, does not have any peripheral weakness or paresthesias, has no visual disturbance or taste sensation change. He has no headache, no fevers or chills, no chest pain or shortness of breath. He has not had recent trauma, he has never had this happen to him in the past. He did get a full work-up last week to assess his Crohn's disease, including a CT of the abdomen and pelvis and chest with IV contrast, and had many labs done which she was told were all reassuring. Last known well was 11 PM last night when he went to bed, symptoms were present when he woke at 11. Onset: Unknown/Unsure Duration: Hour(s): (Symptoms up to 12 hours) Worsens with: Reports: Other (Trying to walk or move is difficult, lying still he has less symptoms) Associated Symptoms: Reports: No Other Symptoms. Denies: Confusion, Chest Pain, Cough, Fever/Chills, Headaches, Malaise, Nausea/Vomiting, Shortness of Breath, Weakness - Related Data Allergies Allergy/AdvReac Type Severity Reaction Status Date / Time Sulfa (Sulfonamide Allergy Unknown unknown Verified 11/08/20 17:13 Antibiotics) benzocaine Allergy Swelling Verified 11/08/20 17:13 budesonide Allergy Cannot Verified 11/08/20 17:13 Remember hydromorphone [From Dilaudid] Allergy Itching Verified 11/08/20 17:13 infliximab [From Remicade] Allergy Hives Verified 11/08/20 17:13 lactose Allergy Cannot Verified 11/08/20 17:13 Remember nortriptyline Allergy Cannot Verified 11/08/20 17:13 Remember olodaterol Allergy Cannot Verified 11/08/20 17:13 [From Stiolto Respimat] Remember tamsulosin [From Flomax] Allergy Cannot Verified 11/08/20 17:13 Remember tiotropium Allergy Cannot Verified 11/08/20 17:13 [From Stiolto Respimat] Remember trazodone Allergy Dizziness Verified 11/08/20 17:13 adalimumab [From Humira] AdvReac Dizziness Verified 11/08/20 17:13 shellfish derived AdvReac Vomiting Verified 11/08/20 17:13 Home Meds: Home Meds Cholecalciferol (Vitamin D3) [Vitamin D3] 2,000 unit PO WEEKLY 07/24/13 [History] Methscopolamine [place] [Pamine] 2.5 mg PO BID 07/24/13 [History] Minocycline HCl 50 mg PO DAILY 07/24/13 [History] Phenazopyridine [Pyridium] 200 mg PO TID PRN 07/24/13 [History] diazePAM [Valium] 15 mg PO BEDTIME PRN 07/24/13 [History] Levothyroxine Sodium [Tirosint] 88 mcg PO DAILY 02/18/14 [History] Pantoprazole [ProTONIX] 40 mg PO ACBREAKFAST 10/01/15 [History] Albuterol/Ipratropium [Combivent Respimat] 1 puff IH Q4H PRN 09/10/16 [History] Hydrocodone/Acetaminophen [Hydrocodon-Acetaminophn 10-300] 1 tab PO Q6H 09/10/16 [History] predniSONE [Deltasone] 5 mg PO DAILY 09/10/16 [History] Losartan [Cozaar] 12.5 mg PO DAILY 09/29/16 [History] Metoclopramide HCl [Reglan] 10 mg PO Q6HR PRN #30 tablet 10/05/16 [Rx] Loperamide [Imodium] 2 mg PO Q6H PRN 10/06/18 [History] ALPRAZolam [Xanax] 0.5 mg PO BID PRN 10/13/19 [History] Albuterol/Ipratropium [DuoNeb 3.0-0.5 MG/3 ML] 3 ml INH Q4HR PRN 10/13/19 [History] Calcium Carbonate [Calcium] 200 mg PO WEEKLY 10/13/19 [History] Hydrocortisone [Hydrocortisone 2.5% Crm] 1 applic TOP BID 10/13/19 [History] Melatonin 12 mg PO BEDTIME 10/13/19 [History] Sildenafil [Viagra] 100 mg PO DAILY PRN 10/13/19 [History] Past Medical History HEENT History: Reports: Allergic Rhinitis, Cataract, Impaired Vision, Sinusitis Cardiovascular History: Reports: Hypertension Other Cardiovascular History: Atypical Chest Pain Respiratory History: Reports: COPD, Pneumothorax, Other (See Below) Other Respiratory History: pleurisy Gastrointestinal History: Reports: Bowel Obstruction, Chronic Diarrhea, Diverticulosis, GERD, Hemorrhoids, Other (See Below) Other Gastrointestinal History: Chrohns Genitourinary History: Reports: Renal Calculus, Other (See Below) Other Genitourinary History: 12 kidney stones per year. Musculoskeletal History: Reports: Back Pain, Chronic, Osteoarthritis Neurological History: Reports: Headaches, Chronic Psychiatric History: Reports: Anxiety, Depression, Panic Attack Endocrine/Metabolic History: Reports: Hypothyroidism, Osteopenia Hematologic History: Reports: B12 Deficiency, Iron Deficiency Immunologic History: Reports: None Dermatologic History: Reports: Eczema, Psoriasis - Infectious Disease History Infectious Disease History: Reports: Chicken Pox - Past Surgical History Head Surgeries/Procedures: Reports: None HEENT Surgical History: Reports: Cataract Surgery, Eye Surgery, Oral Surgery, Other (See Below) Other HEENT Surgeries/Procedures: dental implants Cardiovascular Surgical History: Reports: None, Aneurysm Respiratory Surgical History: Reports: None GI Surgical History: Reports: Appendectomy, Colon, Colonoscopy, Hernia Repair/Other, Polypectomy, Other (See Below) Other GI Surgeries/Procedures: colon resection - 6 colon resections Male Surgical History: Reports: Kidney Stone Extraction, Lithotripsy ([facility]) Endocrine Surgical History: Reports: None Neurological Surgical History: Reports: Scoliosis Musculoskeletal Surgical History: Reports: None Dermatological Surgical History: Reports: None Social & Family History - Family History Family Medical History: No Pertinent Family History - Tobacco Use Tobacco Use Status *Q: Current Every Day Tobacco User Years of Tobacco use: 55 Packs/Tins Daily: 0.5 Used Tobacco, but Quit: No Second Hand Smoke Exposure: No - Caffeine Use Caffeine Use: Reports: Coffee, Tea Other Caffeine Use: 2 cups - Recreational Drug Use Recreational Drug Use: No ED ROS GENERAL - Review of Systems Review Of Systems: See Below Constitutional: Denies: Fever, Chills Respiratory: Denies: Shortness of Breath, Cough Cardiovascular: Denies: Chest Pain GI/Abdominal: Reports: Diarrhea (Chronic diarrhea, intermittent abdominal pain from Crohn's). Denies: Nausea, Vomiting Neurological: Denies: Dizziness (No dizziness or vertigo, just a pulling sensation), Headache Psychiatric: Reports: No Symptoms ED EXAM, NEURO - Physical Exam Exam: See Below Exam Limited By: No Limitations General Appearance: Alert, No Apparent Distress Eye Exam: Bilateral Eye: EOMI, PERRL, Other (Chronic bluish discoloration of the sclera) Head Exam: Atraumatic Neck: No: Lymphadenopathy (R), Lymphadenopathy (L) Respiratory/Chest: No Respiratory Distress, Lungs Clear Cardiovascular: Regular Rate, Rhythm Neurological: Alert, No Motor/Sensory Deficits, Oriented x 3, Other (While lying supine, patient has no weakness in the extremities, can hold his arms and legs up against gravity and there is no asymmetry of the facial muscles) Extremities: Normal Inspection Psychiatric: Normal Affect, Normal Mood Skin Exam: Warm, Dry, Other (Pain patient has a somewhat cyanotic appearance to the ears, areas of the face and hands which according to the are chronic due to his Crohn's disease.) Course - Vital Signs Last Recorded V/S: Last Vital Signs Temp 97.7 F 11/08/20 17:17 Pulse 66 11/08/20 18:15 Resp 21 H 11/08/20 18:15 BP 133/85 11/08/20 18:15 Pulse Ox 100 11/08/20 18:15 - Re-Assessments/Exams Free Text/Narrative Re-Assessment/Exam: 11/08/20 18:05 CT of the head was performed which was read as normal. I recommended to the patient that he have an MRI for further evaluation or at least the advice of an interventional neurologist. Last known well is 19 hours ago, and the patient does not want to go to another facility unless they are going to do something. He also will not allow me to start any anticoagulants because his doctors have told him that he should not take aspirin or blood thinners. We got him up and ambulated him in the guan, he did need assistance which is unusual and off of his baseline. I gave him my call number to call tomorrow morning for an update, if his symptoms do not improve or if he develops new symptoms, he will need further evaluation. 11/09/20 07:29 Patient called this morning and still feels unsteady, he has also now developed a small amount of left facial numbness and some slight dysarthria. I explained to him the importance of further evaluation especially with an MRI and again he insisted on going to [facility] rather than a stroke intervention center. I did call [facility] and discussed his case with the emergency room physician, and they do perform MRIs on the weekend. The patient's is going to drive him down to [place] to get the MRI to establish what further care is necessary. We pushed the CT scan done yesterday to [facility] for comparison. Departure - Departure Time of Disposition: 19:11 Disposition: Home, Self-Care 01 Clinical Impression: Loss of balance, Unsteady gait - Discharge Information Instructions: Vertigo, [id number] Referrals: Lisa Perez MD [Primary Care Provider] - Forms: ED Department Discharge Care Plan Goals: Continue current medications, increase activity as tolerated and return or call tomorrow if not improving satisfactorily. Sepsis Event Note (ED) - Evaluation Sepsis Screening Result: No Definite Risk
[2020-11-08 18:16] VITALS: BP 133/85; PULSE 66
--- NOTE | 2020-11-08 18:49 | CRLCT ---
INDICATION: Balance problems TECHNIQUE: CT head without contrast. COMPARISON: None available FINDINGS: There is cerebral and cerebellar cortical atrophy with proportionate ventriculomegaly. There is no mass effect or midline shift. Diffuse white matter hypodensities are suggestive of advanced chronic small vessel ischemic changes. 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 There is no loss of hammond-white differentiation. There is no evidence of an acute intracranial hemorrhage. No acute calvarial fracture is seen. There is minor mucosal thickening in the frontal sinus inferior recesses. The mastoid air cells are clear. Post cataract surgery changes are seen. IMPRESSION: No evidence of an acute intracranial hemorrhage, mass effect or loss of hammond-white differentiation. Atrophy and chronic ischemic changes. Dictated by Chong Vega MD @ 11/08/2020 6:47:47 PM Please note that all CT scans at this facility use dose modulation, iterative reconstruction, and/or weight-based dosing when appropriate to reduce radiation dose to as low as reasonably achievable. Dictated by: Chong Vega MD @ 11/08/2020 18:48:54 (Electronically Signed)
== END 2020-11-08 19:19 | disposition home or self-care (01) ==
LOC: JP.ED 16:50
DX: R26.81 Unsteadiness on feet (principal); I10 Essential (primary) hypertension; J44.9 Chronic obstructive pulmonary disease, unspecified; E03.9 Hypothyroidism, unspecified; K21.9 Gastro-esophageal reflux disease without esophagitis; Z88.2 Allergy status to sulfonamides; Z88.4 Allergy status to anesthetic agent; Z88.5 Allergy status to narcotic agent; Z91.048 Other nonmedicinal substance allergy status; Z88.8 Allergy status to other drugs, medicaments and biological substances; Z91.013 Allergy to seafood; Z79.899 Other long term (current) drug therapy; Z72.0 Tobacco use
CPT/HCPCS: 70450; 99284-25